=== PATIENT | male | born 1985 | race Two or more races ===

== ENCOUNTER 2016-11-28 09:46 | Emergency (ER) | payer SELFPAY ==
--- NOTE | ~2016-11-28 | ER ---
PATIENT'S NAME: VIVIAN DAVID [facility] AGE: 31 Y [address] ROOM: [place] [address] LOCATION: GMED ADMIT DATE: 11/28/2016 ER/Outpatient Report DISCHARGE DATE: 11/28/2016 FAMILY PHYSICIAN: Mina Goodman MD ATTENDING PHYSICIAN: Ricky Giles CHIEF COMPLAINT: The patient came in for abnormal lab results. HISTORY OF PRESENT ILLNESS: The patient states that [facility]. Labs were obtained and he was sent home. They called him with an elevated sugar and creatinine levels and recommended he come immediately to the ER for evaluation. The patient states he is otherwise feeling fine with no particular complaints. He states that he has had a few surgeries recently and they "really adjusted his insulins." He denies any other issues, but states his sugars normally run between 200 and 400 on his typical checks. He is otherwise feeling okay and does not notice any change in intake or others. PAST MEDICAL HISTORY: Documented on the record and reviewed by me. SOCIAL HISTORY: Documented on the record and reviewed by me. MEDICATIONS: Documented on the record and reviewed by me. ALLERGIES: DOCUMENTED ON THE RECORD AND REVIEWED BY ME. REVIEW OF SYSTEMS: All systems reviewed and negative except as noted in the HPI. PHYSICAL EXAMINATION: VITAL SIGNS: Blood pressure 125/63, pulse 109, respiratory rate 16, temperature 97.7, and SpO2 is 98% on room air. GENERAL: An age-appropriate male, in no obvious pain or distress, resting comfortably on the exam table. NEUROLOGIC: Awake and alert. GCS is 15. No focal deficits. No asymmetry. No gait abnormalities. HEENT: Normocephalic, atraumatic. Eyes are PERRL. Oropharynx is clear. NECK: Supple. Trachea is midline. CHEST: Heart has regular rate and rhythm with borderline tachycardia. Lungs are clear to auscultation bilaterally with no rhonchi, wheezes, or rales. PATIENT'S NAME: VIVIAN DAVID [facility] AGE: 31 Y [address] ROOM: [place] [address] LOCATION: ED ADMIT DATE: 11/28/2016 ER/Outpatient Report DISCHARGE DATE: 11/28/2016 FAMILY PHYSICIAN: Mina Goodman MD ATTENDING PHYSICIAN: Ricky Giles ABDOMEN: Soft, nontender, nondistended. No rebound or guarding. BACK: Nontender to palpation throughout. No CVA tenderness. EXTREMITIES: Warm and well perfused with no obvious abnormalities. SKIN: Warm, dry, and intact without diaphoresis or rashes. LABORATORY DATA AND X-RAYS: No imaging was obtained. Labs: Urinalysis consistent with glucosuria, unlikely to be infected. Hemoglobin A1c is 15.6, mean glucose is 401. Procalcitonin is 0.1. CMS is notable for potassium of 3.3, creatinine of 1.8, GFR of 44, elevated alkaline phosphatase of 142. CRP is below threshold. TSH is 1.17, free T4 is 1.1. Serum ketones are negative. CBC is notable for a WBC of 12.0, otherwise grossly unremarkable; mild anemia with hemoglobin of 11.5. INR 0.9. Venous pH 7.4. IMPRESSION: 1. Likely chronic renal failure secondary to diabetes. 2. Poorly controlled diabetes. EMERGENCY DEPARTMENT COURSE: The patient is seen and evaluated as above. Labs appear to be consistent with his previously obtained labs, no significant changes. The patient is well hydrated. He states that he has known problems with his kidneys. When compared to prior labs, his creatinine went from 1.5 to 1.8. It is stable from his labs from the [facility] yesterday. I discussed the case with Dr. Goodman, primary care physician, and he will be evaluated this week in clinic. I recommended strongly that the patient be evaluated and get his sugars under control before leaving the country to go to [place] as per his plan. I do not think that the patient has DKA or other significant complication. I am recommending close followup with Dr. Goodman this week to help with these issues. All questions were answered, and the patient was discharged. MD BRISEIDA BETTENCOURT/denital /[id number] d: 11/29/16 0710 t: 11/29/16 0945, OUTPATIENT REPORT
[2016-11-28 10:22] LABS: BILIRUBIN URINE NEGATIVE (NEGATIVE); BLOOD URINE 25 /UL (NEGATIVE); COLOR URINE YELLOW (YELLOW); GLUCOSE URINE 1000 mg/dL (NEGATIVE); KETONE URINE 5 mg/dL (NEGATIVE); LEUKOCYTES URINE NEGATIVE /UL (NEGATIVE); NITRITE URINE NEGATIVE (NEGATIVE); PH URINE 6.5 (4.0-8.0); PROTEIN URINE 500 mg/dL (NEGATIVE); TURBIDITY URINE CLEAR (CLEAR); UROBILINOGEN URINE NORMAL (NORMAL)
[2016-11-28 10:37] LABS: BACTERIA URINE FEW (NEGATIVE); MUCUS URINE 1+ (NEGATIVE)
[2016-11-28 11:09] LABS: BICARBONATE 29.7 mmol/L (18.0-23.0); LACTATE 1.5 mEq/L (0.50-1.60); PCO2 48 mmHg (35-45); PO2 55 mmHg (80-90)
[2016-11-28 11:11] LABS: BASOPHIL # 0.1 K/uL (0.0-0.2); BASOPHIL % 0.8 %; EOSINOPHIL # 1.3 K/uL (0.0-0.5); EOSINOPHIL % 10.4 %; HEMATOCRIT 34.1 % (37.0-53.0); HEMOGLOBIN 11.5 g/dL (12.0-17.0); IMMATURE GRANULOCYTE # 0.1 K/uL (0.0-0.3); IMMATURE GRANULOCYTE % 0.4 %; LYMPHOCYTE # 2.3 K/uL (0.8-4.0); LYMPHOCYTE % 19.3 %; MCH 27.5 pg (27.0-34.0); MCHC 33.7 gm/dL (32.0-36.5); MCV 81.6 fl (83.0-98.0); MONOCYTE # 0.4 K/uL (0.0-1.0); MONOCYTE % 3.6 %; MPV 10.1 fl (9.4-12.4); NEUTROPHIL # (ANC) 7.9 K/uL (1.4-9.0); NEUTROPHIL % 65.5 %; NRBC % 0 /100WBC (0-0.00); PLATELET COUNT 438 K/uL (150-450); RBC 4.18 M/uL (4.00-6.00); RDW-CV 13.2 % (11.9-14.6)
[2016-11-28 11:20] LABS: INR - (THERAPEUTIC) 0.9 (0.9-1.1); PROTIME 9.5 SECONDS (9.6-11.1); PTT 29 SECONDS (25-32)
[2016-11-28 11:33] LABS: ALK PHOS 142 IU/L (33-138); ALT 20 IU/L (12-78); ANION GAP 16.3 (10.0-19.0); AST 16 IU/L (10-40); BLOOD UREA NITROGEN 23 mg/dL (6-24); CALCIUM 8.5 mg/dL (8.5-10.5); CHLORIDE 98 mMol/L (96-110); CO2 25 mMol/L (22-32); CREATININE 1.8 mg/dL (0.6-1.3); ESTIMATED GFR (MDRD EQUATION) 44; POTASSIUM 3.3 mMol/L (3.7-5.1); SODIUM 136 mMol/L (135-145); TOTAL BILIRUBIN 0.3 mg/dL (0.0-1.5); TOTAL PROTEIN 6.9 g/dL (6.0-8.4)
[2016-11-28 11:34] LABS: ALBUMIN 1.9 gm/dL (3.5-5.0)
[2017-05-07] MEDS ORDERED: LISINOPRIL-HCT1 EAC1 PO (15:24)
[2017-05-07] MEDS ORDERED: TYLENOL EXTRA500 MG PO (15:27)
== END 2016-11-28 12:33 | disposition disaster alternative care site (69) ==
LOC: GMED 09:46
PROVIDERS: Emergency Medicine
DX: E11.65 Type 2 diabetes mellitus with hyperglycemia (principal)
CPT/HCPCS: J7030

== ENCOUNTER 2017-01-22 07:36 | Inpatient (IN) | payer SELFPAY ==
[~2017-01-22] VITALS: Ht 172.7 cm; Wt 91.7 kg
--- NOTE | ~2017-01-22 | ER ---
[facility] 31 Y [address] ROOM: [place] [address] LOCATION: GPCU ADMIT DATE: 01/22/2017 ER/Outpatient Report DISCHARGE DATE: FAMILY PHYSICIAN: PHYSICIAN, NO ATTENDING PHYSICIAN: Richie CAVANAUGH Time of arrival: 0736 hours. Time of evaluation: 0736 hours. CHIEF COMPLAINT: Right foot wound. HISTORY OF PRESENT ILLNESS: The patient is a 31-year-old male who presents to the emergency department today with a chief complaint of right foot wound. He reports this started about a week and a half prior to arrival. He reports 6/10 pain, it is sharp, it is worse with movement. 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 It goes to his great toe. He has been using some unknown ointment from [place] for the past week and a half. He reports his blood sugars have been running in the 400-500 over the past couple days. He does have a history of a left toe amputation previously due to an infected ulcer. He is an insulin-dependent diabetic. PAST MEDICAL HISTORY: Insulin-dependent diabetes, hypertension, dyslipidemia. PAST SURGICAL HISTORY: Appendectomy, heart surgeries unclear as to what, left 5th toe amputation. SOCIAL HISTORY: The patient denies any tobacco use. Reports occasional alcohol use. Denies any illicit drug use. ALLERGIES: NO KNOWN DRUG ALLERGIES. MEDICATIONS: Please see list. PRIMARY CARE DOCTOR: None. REVIEW OF SYSTEMS: All systems are reviewed by myself and negative with the exception of those PAT[facility] 31 Y [address] ROOM: [place] [address] LOCATION: GPCU ADMIT DATE: 01/22/2017 ER/Outpatient Report DISCHARGE DATE: FAMILY PHYSICIAN: PHYSICIAN, NO ATTENDING PHYSICIAN: Richie CAVANAUGH discussed in HPI and past medical history. PHYSICAL EXAMINATION: VITAL SIGNS: Weight 85.1 kg, blood pressure 190/85, pulse 117, respiratory rate 18, temperature 98.8, oxygen saturation 97% on room air. GENERAL: The patient is a 31-year-old male, who appears older than stated age. HEENT: Normocephalic, atraumatic. Pupils are equal, round, and reactive to light. Mucous membranes are dry. NECK: Supple. There is no nuchal rigidity. CARDIOVASCULAR: Tachycardic. No murmurs, rubs, or gallops. LUNGS: Clear to auscultation bilaterally. No wheezes, rales, or rhonchi. ABDOMEN: Soft, nontender, and nondistended. No rebound, rigidity, or guarding. MUSCULOSKELETAL: The patient moves all 4 extremities. Ambulates with an antalgic gait. SKIN: The patient has an open, malodorous wound to the sole of the right foot, primarily at the base of the right toe into the right great toe. There is drainage noted. There is bloody area noted. LABORATORY DATA AND IMAGING STUDIES: Labs and x-rays are obtained. A venous blood gas, 7.42/40/44/26/1.3. Lactate is 2.0. CRP is 15.2. CBC is unremarkable except for white blood cell count of 13.8, hemoglobin 11.9, hematocrit 35.7, platelets 477. Acetone is positive 1-4. CMP remarkable for sodium 133, potassium 3.0, creatinine is 1.8, glucose 508. LFTs are normal. IMPRESSION: 1. Acute right diabetic foot ulcer with cellulitis. 2. Sepsis due to number 1. 3. Uncontrolled diabetes mellitus type 2. 4. Hypokalemia. 5. Acute kidney injury. 6. Initial visit. EMERGENCY DEPARTMENT COURSE: The patient was brought back to the examination room. Seen and evaluated by myself. IV is established. Laboratory analysis and imaging are obtained as described above. Blood cultures are pending. Wound cultures are obtained and are pending. The patient is given a liter of normal saline bolus. He is given 4 mg Zofran IV. He is initiated on vancomycin 1500 mg as well as Zosyn 4.5 g IV. Potassium replacement is initiated. The patient is given 60 mEq of KCl orally as well as 40 mEq KCl IV over 4 hours. The patient is given another liter of normal saline. I have discussed the case with the Hospitalist Service, Dr. Cavanaugh. He has seen and evaluated the patient down PATIENT'S NAME: VIVIAN DAVID [facility] AGE: 31 Y [address] ROOM: [address] [address] [facility] ADMIT DATE: 01/22/2017 ER/Outpatient Report DISCHARGE DATE: FAMILY PHYSICIAN: LINDA CULVER ATTENDING PHYSICIAN: Richie CAVANAUGH here in the emergency department. He does agree to accept the patient for further evaluation, treatment, and management including IV antibiotics. DISPOSITION: The patient is admitted under the care of the Hospitalist Service in stable condition. DO MARU UREÑA/denital /[id number] d: 01/22/17 1513 t: 01/23/17 0856, OUTPATIENT REPORT
--- NOTE | ~2017-01-22 | CON ---
[facility] AGE: 31 Y [address] ROOM: [place] [address] LOCATION: GPCU ADMIT DATE: 01/22/2017 Consultation DISCHARGE DATE: FAMILY PHYSICIAN: PHYSICIAN, NO ATTENDING PHYSICIAN: Richie TORREZ DATE OF CONSULTATION: 01/23/2017 REFERRING PHYSICIAN: Luis Alberto Miller MD HISTORY OF PRESENT ILLNESS: Mr. Thao is a 31-year-old type 2 diabetic. Reports a work injury three weeks ago, was working for a [employer] company in [place]. Cut his right foot at work. After the injury, he was fired. Since that time, he has been having increasing pain and swelling every day. Admitted to the hospital yesterday. He has shaking chills and sweats. Denies pain elsewhere. ALLERGIES: NONE KNOWN. MEDICATIONS: He is on: 1. Insulin. 2. Levemir. 3. Tradjenta. 4. Lovastatin. 5. Lisinopril. ALLERGIES: NO ALLERGIES KNOWN. PAST MEDICAL HISTORY: Diabetic, hypertension, previous amputation of a portion of his left foot. REVIEW OF SYSTEMS: As above. FAMILY MEDICAL HISTORY: Noncontributory. PERSONAL AND SOCIAL HISTORY: He is single. Lives in [place]. Currently unemployed. He has not completed high school. Does not smoke. Does not chew. Occasional alcohol. No IV drug abuse. PATIENT'S NAME: VIVIAN THAO [facility] AGE: 31 Y [address] ROOM: [place] [address] LOCATION: GPCU ADMIT DATE: 01/22/2017 Consultation DISCHARGE DATE: FAMILY PHYSICIAN: PHYSICIAN, NO ATTENDING PHYSICIAN: Richie TORREZ PHYSICAL EXAMINATION: GENERAL: male, mild distress. Shaking chills. HEENT: Hears and sees. Airway clear. NECK: Nontender, BACK: Nontender. HEART: Pulse rate is regular. LUNGS: Able to take a deep breath. ABDOMEN: Soft. EXTREMITIES: In the right foot, there is edema, perhaps some fluctuance. On the plantar surface of the foot, there is a full-thickness ulceration covering the plantar surface of the metatarsal heads to the mid metatarsals from the second through fifth. There is also full-thickness ulceration of the great toe, surrounding erythema. No purulence expressed. VASCULAR: Cannot palpate dorsalis pedis or posterior tibial pulses, but are dopplerable. DIAGNOSTIC STUDIES: X-rays were reviewed. Right foot, no fracture or dislocation. No obvious bone destruction. There were some unusual calcified densities on the plantar surface of the foot which could be foreign bodies. ASSESSMENT AND PLAN: Most likely septic. Will benefit from at least open debridement of the foot, possibly partial amputation. We will better evaluate with an ankle-brachial index and an MRI with contrast. We will make n.p.o. and plan surgery in the morning. LUIS ALBERTO MILLER MD DPM/denital /[id number] d: 01/24/17 0156 t: 01/27/17 2152, CONSULTATION REPORT
--- NOTE | ~2017-01-22 | OR ---
[facility] 31 Y [address] ROOM: [place] [address] LOCATION: GPCU ADMIT DATE: 01/22/2017 OR/Procedure Report DISCHARGE DATE: FAMILY PHYSICIAN: PHYSICIAN, NO ATTENDING PHYSICIAN: Richie TORREZ SURGEON: Luis Alberto Miller MD STRAIGHT CUTTER: DATE OF PROCEDURE: 01/24/2017 DIAGNOSES: 1. Open wounds, infection and necrosis, right foot. 2. Diabetes. PROCEDURE: 1. Debridement, open wounds, right foot. 2. Cultures. 3. Application of a wound VAC. ANESTHESIA: General. INDICATION: Mr. Thao infected right diabetic foot with open wounds. Reports history of 3 weeks ago an injury at work with an open wound of the right foot, became more swollen, red, and painful each day, now septic for debridement. MRI does not show any bone involvement. Has noncompressible vasculature of diabetes. Understands high risk for amputations in the future. DESCRIPTION OF PROCEDURE: Mr. Thao was taken to the operating room. He is on Zosyn and vancomycin. General anesthetic administered via endotracheal tube. Right leg prepared with Betadine scrubbing followed by Betadine painting and draped sterilely. The great toe necrotic tissue on the plantar surface and the medial surface, 4 cm x 2.5 cm elliptical excision of necrotic tissue into the subcutaneous tissue, necrotic subcutaneous tissue was excised as well, not down to the bone. Over the mid and distal metatarsals, spanning from the 2nd to the 5th, there was an area of necrotic tissue and was elliptically excised, spanning 8 cm x 5 cm into the subcutaneous tissues, not down to the bone. Minimal actual true purulence, just necrotic tissue. All viable tissue at the end of the procedure was irrigated with 9 L with the pulse lavage. Cultures were taken deep in the wounds. Wound VAC was placed. Procedure was done without complication. Estimated blood loss from the procedure was minimal. To the recovery room in stable condition. LUIS ALBERTO MILLER MD PATIENT'S NAME: VIVIAN THAO [facility] AGE: 31 Y [address] ROOM: [place] [address] LOCATION: [facility] ADMIT DATE: 01/22/2017 OR/Procedure Report DISCHARGE DATE: FAMILY PHYSICIAN: LINDA CULVER ATTENDING PHYSICIAN: Richie TORREZ DPM/chris /[id number] d: 01/25/17 0837 t: 01/27/17 2149, OPERATIVE SUMMARY
--- NOTE | ~2017-01-22 | DS ---
PATIENT'S NAME: VIVIAN DAVID [facility] AGE: 31 Y [address] ROOM: [address] [place] [address] LOCATION: GPCU ADMIT DATE: 01/22/2017 Discharge Summary DISCHARGE DATE: 01/31/2017 FAMILY PHYSICIAN: PHYSICIAN, NO ATTENDING PHYSICIAN: Afshan Quiroz PRIMARY DIAGNOSES: 1. Sepsis. 2. Right diabetic foot cellulitis. 3. Diabetic nephropathy. 4. Severe proteinuria. 5. Acute anemia. 6. Diabetes, that is poorly controlled. 7. Essential hypertension. 8. Hypoalbuminemia. PRINCIPAL PROCEDURE: Done for the patient includes: 1. Left renal biopsy by Dr. Ch. 2. Right diabetic foot wound debridement by Dr. Bro. LABORATORY DATA: On admission, WBC was 12.0, highest level obtained was 17.1, prior to discharge was 10.4; H and H on admission were 11.9 and 35.7, prior to discharge were 6.5 and 20.6; platelet was 477,000 on admission, prior to discharge was 471,000. Creatinine on admission was 1.8, lowest level obtained was 1.5, prior to discharge was 1.9; sodium on admission was 130, prior to discharge was 141; potassium on admission was 3.0, lowest level obtained was 2.8 and prior to discharge was 3.4, however,was repleted; bicarb was 23, prior to discharge 25; BUN was 16, prior to discharge was 13. Hemoglobin A1c is 15.6. ESR is greater than 120. Total cholesterol was 292, triglycerides 632, HDL 36. Vancomycin 19.2. UA: Leukocytes negative, specific gravity 1.020, pH 6.0, proteinuria 500, wbc 2-5. Urine spot protein 17.5, urine spot creatinine 32, urine sodium 118, 24-hour urine creatinine 1372, 24-hour urine protein 18,334, urine protein volume 3920. Serum iron 11, TIBC 56, transferrin saturation 19. CRP 15.2 on admission, prior to discharge was 12.3. C3 and C4 level, C3 of 128 and C4 of 37. Ionized calcium 4.41. Microalbuminuria 4419. Serum protein electrophoresis, hypoalbuminemia. MICROBIOLOGY DATA: Wound swab culture positive for Staphylococcus aureus heavy growth and Enterococcus faecalis moderate growth. Wound swab in the OR also positive for the same. HIV-1 and 2 negative. Antinuclear antibody negative. Stool for heme test negative. Stool for C. diff negative. Blood culture, no growth after 5 days. RADIOLOGY DATA: X-ray of the foot: No evidence of osteomyelitis, soft tissue calcifications at plantar surface of the forefoot and ASVD advanced for age. PATIENT'S NAME: VIVIAN DAVID [facility] AGE: 31 Y [address] ROOM: [id number] [place] [id number] LOCATION: GPCU ADMIT DATE: 01/22/2017 Discharge Summary DISCHARGE DATE: 01/31/2017 FAMILY PHYSICIAN: PHYSICIAN, NO ATTENDING PHYSICIAN: Afshan Quiroz Chest x-ray: Normal two-view chest. MRI of the right lower extremity, diffuse soft tissue edema consistent with cellulitis. No abscesses, no MRI findings of osteomyelitis. CT-guided renal biopsy, CT of the abdomen and pelvis without contrast, anomalous renal configuration, no renal collecting system obstruction identified with no perinephric hematoma identified. Left pleural effusion with adjacent lung consolidation at the left base. No free air with no findings of bowel obstruction. Duplex upper extremity vein procedure, negative right upper extremity venous Doppler, and vascular study of right lower extremity findings, ankle-brachial indices are 1.7 bilaterally for JOHNNIE. This appears to be spuriously elevated in a diabetic patient almost certainly due to peripheral vascular calcification. HOSPITAL COURSE: For history of present illness, please take a look at the H and P, which was done by Dr. Cavanaugh. The patient was admitted for diabetes with hyperglycemia and also sepsis from right diabetic foot ulcer. He was started on broad-spectrum antibiotics of vancomycin and Zosyn. His sugars were improved with the insulin regimen, which the patient was put on. With progression in his hospital stay, it was observed that the patient had a prior history of severe proteinuria, and his serum albumin during this admission was also significantly low. Based on this, he did get a renal consult, and Renal did renal panel workup to rule out autoimmune as well as to rule out nephrotic syndrome as the patient had mild features both physically and also on chemistry. By the next day, he did also get an orthopedic consult for his right lower extremity diabetic foot. An JOHNNIE was done, which was abnormal, and this was followed with an MRI of his right lower extremity, which was negative for osteomyelitis. The patient was subsequently taken into the OR for a debridement of his right lower extremity. Please check the operative note for details. By the second day of his hospital stay, his initial wound swab culture, which was obtained on admission was positive for Staphylococcus aureus as well as enterococcus, and his antibiotics were deescalated to Zosyn. Also his OR cultures, which were taken were also positive for same. During the hospital stay, the patient was put on almost half of his total home dose of insulin. He was put on Levemir 10 units b.i.d., which helped to stabilize and keep his blood sugar under control as against his total of 45 units of insulin, which he was taking at home, which did not help in the control of his diabetes. The patient did have an extensive counseling on the importance and the need for him to be compliant with both his diet as his insulin use. However, the patient did not express any sign of willing to change or any acceptance that he has not been taking care of himself. He did also get a renal biopsy, which ultimately came out to consistent with diabetic nephropathy. During his hospital stay, his hemoglobin was trickling down. His stool was negative for any occult blood. The patient was offered transfusion, which would help to raise his hemoglobin some; however, he declined given the risk of probably infection, which the patient was told is minimal; however, he still refused blood transfusion. He was also explained PATIENT'S NAME: VIVIAN DAVID [facility] AGE: 31 Y [address] ROOM: [place] [address] LOCATION: GPCU ADMIT DATE: 01/22/2017 Discharge Summary DISCHARGE DATE: 01/31/2017 FAMILY PHYSICIAN: , LINDA ATTENDING PHYSICIAN: Afshan Quiroz to the complications of not receiving blood transfusion, which included a poor wound healing and fatigue and then ultimately more stress on his heart. However, he was started on Epogen. Given his severe hypoalbuminemia, the patient was also instructed that he is also at risk of developing PEs and DVTs, and we recommended for the patient to be on a prophylactic dose of Coumadin as a form of long-term anticoagulation to prevent him from having DVT or PE; however, the patient declined. He was also visited by the diabetic educators as well. The patient also did get an ID consult a day prior to discharge, who recommended for him to continue on Augmentin for a total of 7 days. Following his debridement, the patient did have a wound VAC in place, however, given his financial situation, it was not possible for the patient to be discharged home on wound VAC. However, Dr. Bro did say if the patient was unable to get a wound VAC item secondary to his financial situation that it was okay for him to be discharged with wet-to-dry dressing of his wound, which was what was finally settled for. On the day of discharge, vital signs were stable, and the patient was discharged home after again extensive counseling was given to him as regarding taking better care of himself, to be more compliant with an appropriate diet, and also the risk that probably in the next one year that he may end up on dialysis. DISCHARGE INSTRUCTIONS: The patient is to follow with Dr. Bro on February 11, 2017, and also he is to follow with Dr. Lopes, new PCP, and also with Dr. Finley. MEDICATIONS ON DISCHARGE: 1. Norvasc 10 mg p.o. daily, new medication. 2. Augmentin 500 mg p.o. twice daily for a total of 6 days. 3. Vasotec 10 mg p.o. daily. 4. Levemir 10 units subcu twice daily FlexPen. 5. Protonix 40 mg p.o. daily. 6. Crestor 10 mg p.o. daily, new medication. 7. Tylenol 2 g p.o. q.12 hours p.r.n. 8. Humalog FlexPen insulin to carb ratio of 1 unit for every 15 g. 9. Hydrochlorothiazide 12.5 mg daily. Discharge time spent on this patient is approximately 35 minutes. MD JACK COLMENARES/chris /[id number] d: 02/01/17 0108 t: 02/03/17 1413, DISCHARGE SUMMARY
--- NOTE | ~2017-01-22 | CON ---
PATIENT'S NAME: VIVIAN DAVID [facility] AGE: 31 Y [address] ROOM: [place] [address] LOCATION: GPCU ADMIT DATE: 01/22/2017 Consultation DISCHARGE DATE: FAMILY PHYSICIAN: PHYSICIAN, NO ATTENDING PHYSICIAN: Richie TORREZ DATE OF CONSULTATION: 01/30/2017 REFERRING PHYSICIAN: Luis Alberto Bro MD CONSULTATION REQUESTED BY: Afshan Quiroz MD. REASON FOR CONSULTATION: Right diabetic foot infection. SUBJECTIVE: Vivian is a 31-year-old male, whom I was asked see today in consultation for treatment recommendations regarding a right diabetic foot infection. He was admitted on 01/22/2017 with a complaint of right foot ulcer for the last several weeks that had grown in size. He has a history of type 2 diabetes. Ultimately, he went on to debridement on 01/24/2017, with a fairly large area of necrotic tissue being debrided. Minimal purulence was noted. Cultures have grown methicillin susceptible Staphylococcus aureus and Enterococcus faecalis. Blood cultures have been negative. An MRI which was performed showed no evidence of osteomyelitis or a significant abscess. PAST MEDICAL HISTORY: As above, also history of congenital heart disease with prior heart surgery, hypertension, diabetic neuropathy, and nephrotic syndrome. ALLERGIES: NONE NOTED. CURRENT MEDICATIONS: See the MAR for complete listing. He is currently on Zosyn for antibiotics. FAMILY HISTORY: Unremarkable without any significant health issues. SOCIAL HISTORY: No tobacco or alcohol abuse history. 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 REVIEW OF SYSTEMS: A complete review of systems was carried out and was remarkable only as noted. Please refer to the admission history and physical for details. PATIENT'S NAME: VIVIAN DAVID [facility] AGE: 31 Y [address] ROOM: [address] [address] LOCATION: GPCU ADMIT DATE: 01/22/2017 Consultation DISCHARGE DATE: FAMILY PHYSICIAN: PHYSICIAN, NO ATTENDING PHYSICIAN: Richie TORREZ OBJECTIVE: GENERAL: He appeared pleasant and comfortable and was in no distress. VITAL SIGNS: Temperature is 36.6, blood pressure 119/78, pulse 93. HEENT: Posterior pharynx clear, no adenopathy or thyromegaly. Cranial nerves intact. NECK: Supple. CHEST: Clear to auscultation. CARDIOVASCULAR: Regular rate and rhythm without S3, S4, murmur. ABDOMEN: Soft, nontender without hepatosplenomegaly or masses. EXTREMITIES: The right foot was dressed and wrapped. VAC dressing was in place on the foot. There were significant ecchymoses noted on the toes. LABORATORY DATA: Creatinine 1.9, liver function tests normal. Hemoglobin A1c is 15.6. White count is 10.4. Microbiology: Blood culture x1, 01/25/2017 shows no growth to date. Blood cultures x2, 01/22/2017 show no growth to date. Foot cultures 01/22/2017 and 01/24/2017 show Enterococcus faecalis and Staphylococcus aureus. IMPRESSION: Right foot diabetic and soft tissue infection with Staphylococcus aureus and Enterococcus faecalis. This has been debrided, and the wound reportedly looks good with dressing changes. He is planning to discharge in the next few days. As he apparently has a reasonable looking wound without ongoing signs of infection, he had negative blood cultures, and his MRI did not show significant bone or deep tissue involvement, I think it would be reasonable to casino change attendant to oral antibiotics for the next 1-2 weeks. We will casino change attendant to Augmentin 500 mg twice daily for at least the next week, and this can be extended as needed. He will follow up with Dr. Bro and his other providers, but he can follow up with infectious diseases as needed. Thank you this consultation. I am available to discuss the case by phone at [phone]. MD KETURAH MITCHELL/denital /[id number] PATIENT'S NAME: VIVIAN DAVID [facility] AGE: 31 Y [address] ROOM: [address] [place], [place] [address] [facility] ADMIT DATE: 01/22/2017 Consultation DISCHARGE DATE: FAMILY PHYSICIAN: PHYSICIAN, NO ATTENDING PHYSICIAN: Richie TORREZ CC: Afshan Quiroz MD d: 01/30/17 1710 t: 01/31/17811, CONSULTATION REPORT
--- NOTE | ~2017-01-22 | HP ---
PATIENT'S NAME: VIVIAN DAVID [facility] AGE: 31 Y [address] ROOM: [place] [address] [facility] ADMIT DATE: 01/22/2017 History & Physical DISCHARGE DATE: FAMILY PHYSICIAN: PHYSICIAN, NO ATTENDING PHYSICIAN: Richie TORREZ DATE OF SERVICE: CHIEF COMPLAINT: Foot pain. HISTORY OF PRESENT ILLNESS: The patient is a 31-year-old gentleman with history of diabetes mellitus type 2 and hypertension, who presents here with right foot ulcer. The patient reports that for the past 2 weeks, he has been having right foot pain. 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 However, as the time has progressed, his ulcer has increased significantly with worsening of pain, worsening of ulceration in size and depth, and surrounding erythema change. He reports that he used gauze and topical medication to control it, however, it did not improve. Today, he came to our emergency department as he is in-between PCP. The patient also reports of nasal congestion and productive cough with clear sputum. He reports that most of his family members have some sort of viral illness and thinks that he got it from his family member. The patient denies fever, chills, abdominal pain, nausea, or vomiting. No chest pain or diarrhea. PAST MEDICAL HISTORY: 1. Congenital heart disease. Does not remember what kind it is. He has had surgery in [place]. 2. Diabetes mellitus, type 2. 3. Hypertension. 4. Diabetic neuropathy. PAST SURGICAL HISTORY: 1. Has had 5th left toe amputation. 2. Appendectomy. 3. Multiple I and D's. 4. Congenital heart disease with surgery. FAMILY HISTORY: The patient reports that his mother and father are healthy and also his [facility] AGE: 31 Y [address] ROOM: [place] [address] LOCATION: GPCU ADMIT DATE: 01/22/2017 History & Physical DISCHARGE DATE: FAMILY PHYSICIAN: PHYSICIAN, NO ATTENDING PHYSICIAN: Richie TORREZ siblings. Does not remember his grandparents. SOCIAL HISTORY: The patient denies smoking and reports that he rarely drinks. 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 MEDICATIONS: 1. Levemir 45 units in the morning. 2. Humalog sliding scale. 3. Tradjenta. 4. Lovastatin. 5. Lisinopril. REVIEW OF SYSTEMS: All systems have been reviewed and are negative except for what I mentioned in the HPI. PHYSICAL EXAMINATION: VITAL SIGNS: Temperature 98.8, blood pressure 190/85, heart rate 117, respiratory rate 18, and oxygen saturation 97% on room air. GENERAL APPEARANCE: The patient is alert and awake, lying on bed in no acute distress. HEENT: Head; normocephalic and atraumatic. Eyes; extraocular muscles intact. Sclerae nonicteric. Oral cavity; dry oral mucosa. Ears; no ear discharge. Nose; nasal congestion. CHEST: Clear to auscultation bilaterally. No rhonchi, wheezes, or rales. HEART: Regular rate and rhythm. No murmurs, rubs, or gallops. ABDOMEN: Soft, nontender, and nondistended. Bowel sounds present. HEART: Tachycardic. No murmurs, rubs, or gallops. SKIN: Right foot sole shows ulceration with necrotic change and eschar length from 2nd toe up to 5th toe with length of close to 5 cm. No drainage expressed. Erythema around lesion. Also the great toe ulceration without purulent discharge. EXTREMITIES: Bilateral dorsalis pedis and posterior tibialis pulses present and intact. MUSCULOSKELETAL: Range of motion intact. No obvious joint effusion appreciated. EQUIP TECH: Alert and oriented. Motor and sensory grossly intact. LABORATORY DATA: Lactate of 2. Potassium of 3.0, sodium of 133, creatinine of 1.8, and blood glucose of 508. White blood cell count of 13.8, hemoglobin 11.9, platelets of 447,000, and ESR greater than 120. VBG shows pH of 7.42, pCO2 of 40, and bicarbonate of 25. PATIENT'S NAME: VIVIAN DAVID [facility] AGE: 31 Y [address] ROOM: [id number] [place] [id number] [facility]: [facility] ADMIT DATE: 01/22/2017 History & Physical DISCHARGE DATE: FAMILY PHYSICIAN: PHYSICIAN, NO ATTENDING PHYSICIAN: Richie TORREZ ASSESSMENT AND PLAN: 1. Diabetic foot ulcer with cellulitis, etiology most likely secondary to uncontrolled diabetes and poor foot care. Also with underlying diabetic neuropathy. Pulses are present. The patient already given vancomycin and Zosyn in the emergency department. Blood cultures have been withdrawn. Wound culture also been drawn. I suspect the patient might have underlying osteomyelitis. Since the patient has a creatinine of 1.8, and a possible chronic kidney disease or acute kidney injury, we will hydrate the patient adequately and acquire renal function panel by tomorrow. If renal function panel shows improvement, we will acquire an MRI with and without contrast to further investigate osteomyelitis. If osteomyelitis diagnosed, we will consult Orthopedics for possible surgical evaluation. 2. Diabetes mellitus, type 2, uncontrolled. The patient reports that he sometimes misses his insulin regimen. Currently presented with blood glucose of 508. We will hold any IV insulin regimen as his potassium is currently 3.0. We will start his home medication of 45 detemir and start sliding scale. We will follow blood glucose closely. ABG does not show any signs of diabetic ketoacidosis. The patient has already received 2 L of IV fluids in the emergency department. We will continue IV fluid treatment and follow blood glucose closely. Discussion was made about medical compliance. 3. Acute kidney injury. It is likely secondary to dehydration and sepsis. The patient in the past has had some elevation of creatinine. We will acquire protein to creatinine ratio to further discuss proteinuria. We will hydrate the patient and assess for kidney function with renal function panel daily. 4. Hypokalemia. The patient presented with a potassium of 3.0. He is receiving 60 mEq of p.o. potassium in the emergency department and also is currently getting 40 mEq IV. We will repeat CMS at 1800 hours. 5. Productive cough. Etiology most likely to postnasal drip secondary to viral illness and nasal congestion. However, we will acquire chest x-ray to further investigate any infiltrate. We will follow the patient clinically. 6. Hypertension. We will hold lisinopril as the patient has elevated creatinine. We will switch to amlodipine 10 mg daily. To restart amlodipine, when creatinine is back to normal base. I have personally reviewed the patient's medical record including but not limited to, blood work and radiology report. Total time spent with the patient is greater than 60 minutes with more than 50% of the time is spent in direct inpatient care and patient consultation. Case was reviewed with the patient and nursing staff. All questions were answered to patient's satisfaction. We will admit the patient as an inpatient for diabetic foot ulcer with cellulitis with possible osteomyelitis. PATIENT'S NAME: VIVIAN DAVID [facility] AGE: 31 Y [address] ROOM: [place] [address] LOCATION: [facility] ADMIT DATE: 01/22/2017 History & Physical DISCHARGE DATE: FAMILY PHYSICIAN: PHYSICIAN, LINDA ATTENDING PHYSICIAN: Richie TORREZ MD ARNAUD RAY/chris /[id number] D: [id number] T: [id number] HISTORY & PHYSICAL
--- NOTE | ~2017-01-22 | ENPV ---
Vascular Upper Extremities Veins Procedure Demographics Patient Name VIVIAN DAVID Date of Study 01/25/2017 Patient Number [id number] Gender Male Date of 1985 Age 31 Visit Number [id number] Height Accession Number [id number] Weight Room Number G6329 BSA BMI Referring Interpreting Dima Dahl MD Physician Physician Physician Ordering Taproom Attendant Physician Welt Rougher Karen Zamorano, RT,RVT,RDCS Conclusions Summary TECHNIQUE: The deep and superficial veins of the upper extremity on the right were evaluated with alcala scale utilizing compression and augmentation, and evaluation of phasic flow using spectral Doppler and color flow FINGDINGS: Deep and superficial veins of the right upper extremity show normal color flow and compressibility without thrombosis. IMPRESSION: NEGATIVE RIGHT UPPER EXTREMITY VENOUS DOPPLER STUDY. Procedure Type of Study: Veins:Upper Extremities Veins, Upper Extremity Right. Indications for Study:Unilateral pain and edema. Appropriate Use Criteria:9 Patient Status:Routine. Study Location:Inpatient Portable. Technical Quality:Good visualization. - Preliminary reported to:ASA, RN. Velocities are measured in cm/s ; Diameters are measured in cm Right UE Vein Measurements 2D and Doppler Measurements + + + + +--------+ + !Location !Visualized !Compressibility !Thrombosis !Signal !Reflux ! + + + + +--------+ + !IJV !Yes ! !None ! ! ! + + + + +--------+ + !SCV !Yes ! !None ! ! ! + + + + +--------+ + !Axillary !Yes ! !None ! ! ! + + + + +--------+ + !Brachial !Yes ! !None ! ! ! + + + + +--------+ + !Radial !Yes ! !None ! ! ! + + + + +--------+ + !Ulnar !Yes ! !None ! ! ! + + + + +--------+ + !Basilic !Yes ! !None ! ! ! + + + + +--------+ + !Cephalic !Yes ! !None ! ! ! + + + + +--------+ + Signature dtt: Deven Ch: 01/25/17 1217 Physician Self Edit
--- NOTE | ~2017-01-22 | CON ---
PATIENT'S NAME: VIVIAN DAVID [facility] AGE: 31 Y [address] ROOM: [address] [place], [place] [address] LOCATION: GPCU ADMIT DATE: 01/22/2017 Consultation DISCHARGE DATE: FAMILY PHYSICIAN: PHYSICIAN, NO ATTENDING PHYSICIAN: Richie TORREZ DATE OF CONSULTATION: 01/25/2017 REFERRING PHYSICIAN: Luis Alberto Bro MD CHIEF COMPLAINT: CKD and hypoalbuminemia, possibly nephrotic syndrome. HISTORY OF PRESENT ILLNESS: A 31-year-old male with history of diabetes mellitus and hypertension, presented with a diabetic foot ulcer and was found to have an albumin of 0.8 with anasarca. Nephrology consultation has been called for the above-mentioned reason. As per the patient, he does not have any health insurance, and was also non- compliant with antidiabetic regimen. His A1c was more than 15, and blood sugar is often in the 400 to 500 range. The patient has never seen any Diabetic specialist, and also never seen a director investment banking in the past. He did give history of a significant diabetic neuropathy and retinopathy. He was seen by an injection molder about a year back when he was told that he needs some laser operation, but he did not do it. During my evaluation, the patient appears to be in comfortable condition, lying on bed, but has significant edema. Blood pressure is marginal. His albumin is 0.2. Protein-creatinine ratio came back as 32. UA always shows 4+ protein and 2+ blood. No autoimmune workup was done in the past. 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 Initially, he had a mild ulcer on his right sole; however, with time, the ulcer increased significantly with worsening of pain and worsening of ulceration size, depth, and surrounding erythema. He did use some gauze and topical medication to control it, but did not improve, and then came to the hospital for further evaluation and management. He denied any fever or chills. No nausea, vomiting, or abdominal pain. No chest pain, shortness of breath, orthopnea, or PND. REVIEW OF SYSTEMS: GENERAL: No fever. No chills or rigor. HEENT: No sore throat. No sinus congestion. CVS: No chest pain. No exertional shortness of breath. Significant leg and dependent edema. RESPIRATORY: No shortness of breath. No cough. No wheezing. GENITOURINARY: No pain with urination. No increased frequency. No nocturia. GASTROINTESTINAL: No abdominal pain. No abdominal distention. No nausea or vomiting. NEUROLOGIC: No weakness. No seizures. SKIN: No rash. No itching. ALLERGIES: No seasonal allergy. No hayfever. ENDOCRINE: No heat intolerance. No cold intolerance. PSYCHIATRIC: No sadness. No crying spells. No history of panic attack.PATIENT'S NAME: VIVIAN DAVID [facility] AGE: 31 Y [address] ROOM: [place] [address] LOCATION: GPCU ADMIT DATE: 01/22/2017 Consultation DISCHARGE DATE: FAMILY PHYSICIAN: PHYSICIAN, NO ATTENDING PHYSICIAN: Richie TORREZ PAST MEDICAL HISTORY: 1. Hypertension. 2. Uncontrolled diabetes complicated with diabetic neuropathy and retinopathy. 3. Congenital heart disease, status post surgery during his childhood, but does not remember what. PAST SURGICAL HISTORY: 1. Fifth left toe amputation. 2. Appendectomy. 3. Multiple incisions and drainage. 4. Congenital heart disease surgery, but could not specify the type or the type of disease. FAMILY HISTORY: He reports that both parents were healthy, and so are the siblings. He does not remember his grandparents. SOCIAL HISTORY: He denied smoking or any drug, occasionally drinks. 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 MEDICATIONS: 1. Levemir 45 units in the evening. 2. NovoLog sliding-scale. 3. Tradjenta. 4. Lovastatin. 5. Lisinopril. PHYSICAL EXAMINATION: VITAL SIGNS: Blood pressure was 153/74, respiratory rate was 18, pulse was 105, and temperature was 98.2. SKIN: [place], warm and dry. EYES: Sclerae clear. No xanthelasmas. ENT: Oral mucosa is pink and moist. No carotid bruits. NECK: Positive JVD. No thyromegaly or lymphadenopathy. CHEST: Respirations are even and unlabored. Lungs are clear to auscultation. HEART: Regular rate and rhythm. No murmurs, rubs or gallops. S1 and S2 were positive. Systolic murmur. ABDOMEN: Soft and nontender. MUSCULOSKELETAL: Gait is normal. EXTREMITIES: Peripheral pulses palpable. No cyanosis, clubbing, or jaundice. At least 1 to 2+ dependent edema. PSYCHIATRIC: Alert and oriented. Mood and affect are appropriate.PATIENT'S NAME: VIVIAN DAVID [facility] AGE: 31 Y [address] ROOM: [place] [address] LOCATION: GPCU ADMIT DATE: 01/22/2017 Consultation DISCHARGE DATE: FAMILY PHYSICIAN: PHYSICIAN, NO ATTENDING PHYSICIAN: Richie TORREZ LABORATORY DATA: Hemoglobin was 7.6, WBC was 13.9, and platelets were 417. Chemistry: Sodium of 143, potassium of 4, chloride of 104, bicarbonate of 20, BUN of 15, creatinine of 1.6, glucose of 170, calcium of 6.9, albumin of 0.7, and magnesium of 1.6. ESR is more than 120. UA with specific gravity of 1.020, pH of 6, blood of 2+, protein of 4+, wbc's of 2 to 5, rbc's of 2 to 5, and rare bacteria. Protein-creatinine ratio of 32. ASSESSMENT AND PLAN: 1. Heavy proteinuria with nephrotic syndrome, possibly diabetic nephropathy with some contribution from hypertensive sclerosis. He denied significant NSAID use. However, no autoimmune workup in the past. The patient's ESR and CRP are very high, which might be due to cellulitis and underlying osteomyelitis versus any other autoimmune disorder. We will first send all autoimmune workup and paraproteinemia workup, although less likely, and we will plan for a CT-guided renal biopsy on Saturday. The patient needs to be n.p.o. after midnight on Saturday. We will start the patient on a low-dose XIMENA inhibitor as an antihypertensive and also for renal protection in context of heavy proteinuria. We will do a 24- hour [id number] quantification as the patient had significant chronic kidney disease as baseline. 2. Chronic kidney disease, stage 3. Creatinine currently at baseline of 1.8 to 2. The patient has significant volume overload, but we will not start to diurese at this point because I believe with significant hypoalbuminemia, patient is intravascularly dry, and further aggressively diuresing him may predispose circulatory volume loss and acute kidney injury. We will do UA and urine lytes including sodium, potassium, and creatinine osmolality. He may need to do a renal ultrasound, as well as a CT-guided renal biopsy on Saturday. 3. Hypertension, not adequately controlled. We will add lisinopril for both antihypertensive medication as well as for renal protection. We will up- titrate as per the dose response. 4. Diabetes. A1c is currently more than 15. The patient does not have insurance. He needs to follow up with one of the physicians here at [facility] for his diabetes, and needs adequate control of his diabetes with both diet and drugs. Goal A1c is less than 7. Thank you for allowing me to participate in this patient's care. We will closely monitor the patient's progress along with you. ROBBIE MANCINI MD /denital /[id number] d: 01/26/17 0017 t: 01/29/17 1512, CONSULTATION REPORT
--- NOTE | ~2017-01-22 | ENPV ---
Vascular Lower Arterial Plethysmography Procedure Demographics Patient Name VIVIAN DAVID Date of Study 01/24/2017 Patient Number [id number] Gender Male Date of 1985 Age 31 Visit Number [id number] Height Accession Number [id number] Weight Room Number G6329 BSA BMI Referring Adali Yanez MD Interpreting Opal Knapp Physician Afshan Quiroz Physician Physician Ordering Adali Yanez Inspector Weights And Measures Physician Computer Science Teacher Raisa Monsalve [facility], [facility] Conclusions Summary TECHNIQUE: Brachial and lower extremity blood pressure measurements are obtained with vascular waveforms obtained. The study includes evaluation at the right and left brachial artery and the arterial system of both lower extremities at the posterior tibial artery and dorsalis pedis artery. Ankle/brachial index is calculated. Findings: Ankle brachial indices are 1.7 bilaterally. This appears to be spuriously elevated in a diabetic patient almost certainly due to peripheral vascular calcification. This study therefore is inconclusive. Procedure Type of Study: Extremities Arteries:Lower Arterial Plethysmography, Ankle/Brachial Indicies. Indications for Study:Ulcer/gangrene. Appropriate Use Criteria:9 Patient Status:Routine. Study Location:Inpatient Portable. Technical Quality:Adequate visualization. Velocities are measured in cm/s ; Diameters are measured in cm Pressures + +----+ +---------+--------+ + + ! ! !Right ! !Left ! ! ! + +----+ +---------+--------+ + + !Location ! !Pressure !Ratio ! !Pressure !Ratio ! + +----+ +---------+--------+ + + !Ankle PT ! !270 !1.71 ! !270 !1.71 ! + +----+ +---------+--------+ + + !DP ! !270 !1.71 ! !270 !1.71 ! + +----+ +---------+--------+ + + - Brachial Pressure:Right: 154.Left:158. - JOHNNIE:Right: 1.71.Left: 1.71. Signature dtt: Cal Joseph dtd: 01/24/17 [facility] Physician Self Edit
--- NOTE | ~2017-01-22 | CON ---
PATIENT'S NAME: VIVIAN DAVID [facility] AGE: 31 Y [address] ROOM: [address] [address] [facility] ADMIT DATE: 01/22/2017 Consultation DISCHARGE DATE: FAMILY PHYSICIAN: PHYSICIAN, NO ATTENDING PHYSICIAN: Richie CAVANAUGH DATE OF CONSULTATION: 01/22/2017 REFERRING PHYSICIAN: Dr. Richie Cavanaugh REASON FOR CONSULTATION: Right foot wound. HISTORY OF PRESENT ILLNESS: This is a 31-year-old male patient who was admitted to [facility] with a right foot ulcer. He has a significant history of uncontrolled type 2 diabetes mellitus, peripheral neuropathy, hypertension, chronic kidney disease, and a left fifth toe amputation secondary to osteomyelitis. The patient endorses right foot pain for the last 2-1/2 weeks. He has previously treated this site with an antibiotic cream that his mother gave him from [place]. He also endorses putting a powder to the site. He notes in the last few days, the wound declining and his father making him come to [facility] for further evaluation. The patient reports he does not have insurance and is not following up regularly with a physician. He does follow [facility] with [facility] and reports taking his medications. He admits to a regular diet and does not follow diabetic restrictions. His hemoglobin A1c is significantly elevated at 15.6%. The patient denies fevers, chills, or sweats. He reports wearing work boots and notes that is where the callus buildup started. He denies chest pain or shortness of breath. He admits to nasal congestion and a dry cough. He has seen Dara Quinones, nurse practitioner, before but reports he is not interested in seeing anybody from diabetic education during his hospital stay. He notes that his family members have had a viral illness and the flu and he is currently getting over the same illness. PAST MEDICAL HISTORY: Uncontrolled type 2 diabetes mellitus, essential hypertension, peripheral neuropathy, and chronic kidney disease. PAST SURGICAL HISTORY: Left fifth toe amputation secondary to osteomyelitis, appendectomy, and congenital heart disease with surgery. FAMILY HISTORY: The patient reports his mother and grandmother had diabetes. PATIENT'S NAME: VIVIAN DAVID [facility] AGE: 31 Y [address] ROOM: [address] [address] LOCATION: [facility] ADMIT DATE: 01/22/2017 Consultation DISCHARGE DATE: FAMILY PHYSICIAN: PHYSICIAN, NO ATTENDING PHYSICIAN: Richie CAVANAUGH SOCIAL HISTORY: The patient lives in [place]. He currently is unemployed and does not have insurance. He reports he does not qualify for disability. He has a remote history of methamphetamine use. He reports he drinks alcohol rarely. He denies tobacco use. 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 ALLERGIES: NO KNOWN DRUG ALLERGIES. CURRENT MEDICATIONS: Please refer to medication administration record. REVIEW OF SYSTEMS: Pertinent positives addressed in the HPI and all the rest are negative. PHYSICAL EXAMINATION: VITAL SIGNS: Temperature 98.4, pulse 94, respirations 18, blood pressure 120/59, pulse oximetry 98% on room air, height 5 feet 8 inches, and 85.1 kg. GENERAL: The patient is . Alert and oriented x3, in no acute distress. HEENT: Head: Normocephalic, atraumatic. Missing front teeth noted, poor oral dentition. NEUROLOGICAL: Grossly nonfocal. Did not perform monofilament testing. ABDOMEN: Flat. EXTREMITIES: +1 pedal pulses. Capillary refill intact. Heel is intact. Warm to touch. Brown staining to lower legs. Obvious left fifth toe amputation. SKIN: Right second to fifth metatarsal head area has an ulcer with significant callus buildup and necrosis to the center. Able to gently debride b=eschar. After debridement, wound bed is about 20% brown necrosis with yellow slough. The rest appears red in color. Pinpoint areas in the center probe to 2 cm, but from what I can tell no bone is probed. Periwound has callused. Moderate amount of bloody drainage. The center had a small amount of purulent exudate with probing. Odor noted. Right plantar aspect of his great toe, wound measures 6.0 cm width x 4.5 cm length x 2.0 cm depth. To the patient's right plantar aspect of his great toe, he has a wound that measures 2.0 cm width x 3.3 cm length x 0.4 cm depth. Small nonpurulent exudate noted. The majority of wound bed is red in color. Periwound has callused. Left plantar aspect of his foot has callus buildup. Left fourth dorsal toe has a small circular scabbed ulcer. LABORATORY DATA: White blood cell count 13.8, hemoglobin 11.9, hematocrit 37.5, platelets 477. Sodium 141, potassium 2.8, chloride 107, bicarb 24, BUN 15, creatinine 1.8, PATIENT'S NAME: VIVIAN DAVID [facility] AGE: 31 Y [address] ROOM: [place] [address] LOCATION: [facility] ADMIT DATE: 01/22/2017 Consultation DISCHARGE DATE: FAMILY PHYSICIAN: PHYSICIAN, NO ATTENDING PHYSICIAN: Richie CAVANAUGH glucose 106. Albumin 0.9. GFR 44. LABORATORY AND DIAGNOSTICS: Right foot x-ray shows no evidence of osteomyelitis. Soft tissue calcifications at the plantar surface of the forefoot and ASVD advanced for age. PROCEDURE NOTE: Today's procedure is selective debridement of necrosis and debris to the patient's right second to fifth metatarsal head diabetic foot ulcer. The area is prepped and draped in the usual fashion and performed in a clean field. I used a sterile #11 blade to excise callus buildup, necrosis, and subcutaneous tissue from the wound bed. The patient tolerated well and had no feeling. I removed a total of 13.5 squared cm, which equates to 50% of the wound bed. Small amount of bloody exudate was noted and hemostasis was achieved by using manual pressure with a gauze pad. I also pared the periwound and the patient's right great toe ulcer. No bleeding noted after paring nonviable callus. ASSESSMENT AND PLAN: Again, this is a 31-year-old male patient who was admitted to [facility] with a right foot wound. 1. Right second to fifth metatarsal head neuropathic foot ulcer secondary to uncontrolled type 2 diabetes mellitus and pressure. Complicated by cellulitis. The patient on IV vancomycin and Zosyn. X-ray unremarkable. Surprisingly, no bone probe during my examination. The patient would benefit from MRI with and without contrast to definitively assess for osteomyelitis especially due to his significant history and noncompliance. Attending MD is waiting until his kidney function is improved. I discussed with the patient an MRI and he reported he may possibly refuse an MRI, as he does not want to make his kidneys any worse. I provided education and encouraged him to discuss with the hospitalist. I instructed nursing to cleanse the foot with soap and water. Then, apply skin prep to the periwounds and cover with dry gauze and Kerlix changing b.i.d. & p.r.n. saturation. Recommend ortho consult. 2. Uncontrolled type 2 diabetes mellitus. The patient told me that he would refuse diabetic education, but obviously would benefit from one. I discussed the importance of daily foot exams. He needs to find a primary care provider on discharge. I suggested internal med. He is concerned about assistance and reports he only is seeing [facility]. I ordered a care management consult to discuss possible options on discharge. I discussed that the patient would benefit from orthotics, but once again does not have the funds to support such treatment. The patient verbalized he does not want an amputation; however, he needs to become compliant. Otherwise, it appears that will be in his future. PATIENT'S NAME: VIVIAN DAVID [facility] AGE: 31 Y [address] ROOM: [address] [address] LOC[facility] ADMIT DATE: 01/22/2017 Consultation DISCHARGE DATE: FAMILY PHYSICIAN: PHYSICIAN, NO ATTENDING PHYSICIAN: Richie CAVANAUGH He is young and it is very unfortunate he has such significant uncontrolled diabetes. I would like to thank Dr. Cavanaugh for this consult. BEN FERNÁNDEZ APRN FOR MD MADDI PATINO/chris /[id number] d: 01/23/17 0054 t: 02/08/17 1013, CONSULTATION REPORT
[2017-01-22 08:06] LABS: BASOPHIL % 0.3 %; BICARBONATE 25.9 mmol/L (18.0-23.0); EOSINOPHIL # 0.3 K/uL (0.0-0.5); EOSINOPHIL % 2.4 %; HEMATOCRIT 35.7 % (37.0-53.0); HEMOGLOBIN 11.9 g/dL (12.0-17.0); IMMATURE GRANULOCYTE # 0.1 K/uL (0.0-0.3); IMMATURE GRANULOCYTE % 0.5 %; LYMPHOCYTE # 1.7 K/uL (0.8-4.0); MCH 26.4 pg (27.0-34.0); MCHC 33.3 gm/dL (32.0-36.5); MCV 79.2 fl (83.0-98.0); MONOCYTE # 0.7 K/uL (0.0-1.0); MONOCYTE % 4.9 %; MPV 8.8 fl (9.4-12.4); NEUTROPHIL % 79.9 %; NRBC % 0 /100WBC (0-0.00); PCO2 40 mmHg (35-45); PLATELET COUNT 477 K/uL (150-450); RBC 4.51 M/uL (4.00-6.00); RDW-CV 12.9 % (11.9-14.6); WBC 13.8 K/uL (4.0-11.0)
[2017-01-22 08:09] LABS: PO2 44 mmHg (80-90)
[2017-01-22 08:35] LABS: CALCIUM 7.5 mg/dL (8.5-10.5); CREATININE 1.8 mg/dL (0.6-1.3); TOTAL PROTEIN 6.7 g/dL (6.0-8.4)
[2017-01-22 08:43] LABS: TOTAL BILIRUBIN 0.2 mg/dL (0.0-1.5)
[2017-01-22] MEDS ORDERED: HUMALOG100 UNIT/1 SUB-Q (14:42)
[2017-01-22] MEDS ORDERED: TRADJENTA5 MG PO (14:43)
[2017-01-22] MEDS ORDERED: LEVEMIR FL100 UNIT/1 SUB-Q (14:43)
[2017-01-22] MEDS ORDERED: LISINOPRIL-HCT1 EAC1 PO (14:43)
[2017-01-22] MEDS ORDERED: TYLENOL EXTRA500 MG PO (14:44)
[2017-01-22] MEDS ORDERED: LOVASTATIN40 MG PO (14:44)
[2017-01-22 18:11] LABS: ALBUMIN 0.9 gm/dL (3.5-5.0); ALK PHOS 105 IU/L (33-138); ALT < 10 IU/L (12-78); ANION GAP 12.8 (10.0-19.0); AST 9 IU/L (10-40); BLOOD UREA NITROGEN 15 mg/dL (6-24); CALCIUM 7.3 mg/dL (8.5-10.5); CHLORIDE 107 mMol/L (96-110); CO2 24 mMol/L (22-32); CREATININE 1.8 mg/dL (0.6-1.3); ESTIMATED GFR (MDRD EQUATION) 44; POTASSIUM 2.8 mMol/L (3.7-5.1); SODIUM 141 mMol/L (135-145); TOTAL BILIRUBIN 0.3 mg/dL (0.0-1.5); TOTAL PROTEIN 6.1 g/dL (6.0-8.4)
[2017-01-23 02:11] LABS: BASOPHIL % 0.2 %; EOSINOPHIL # 0.4 K/uL (0.0-0.5); EOSINOPHIL % 2.3 %; HEMATOCRIT 26.6 % (37.0-53.0); HEMOGLOBIN 8.7 g/dL (12.0-17.0); IMMATURE GRANULOCYTE # 0.1 K/uL (0.0-0.3); IMMATURE GRANULOCYTE % 0.6 %; LYMPHOCYTE # 2.2 K/uL (0.8-4.0); LYMPHOCYTE % 12.7 %; MCH 26.4 pg (27.0-34.0); MCHC 32.7 gm/dL (32.0-36.5); MCV 80.9 fl (83.0-98.0); MONOCYTE # 1.1 K/uL (0.0-1.0); MONOCYTE % 6.6 %; MPV 8.6 fl (9.4-12.4); NEUTROPHIL # (ANC) 13.3 K/uL (1.4-9.0); NEUTROPHIL % 77.6 %; NRBC % 0 /100WBC (0-0.00); PLATELET COUNT 468 K/uL (150-450); RBC 3.29 M/uL (4.00-6.00); WBC 17.1 K/uL (4.0-11.0)
[2017-01-23 02:28] LABS: ALK PHOS 92 IU/L (33-138); ANION GAP 11.4 (10.0-19.0); AST 13 IU/L (10-40); BLOOD UREA NITROGEN 17 mg/dL (6-24); CHLORIDE 111 mMol/L (96-110); CO2 23 mMol/L (22-32); CREATININE 1.7 mg/dL (0.6-1.3); ESTIMATED GFR (MDRD EQUATION) 47; POTASSIUM 3.4 mMol/L (3.7-5.1); SODIUM 142 mMol/L (135-145); TOTAL PROTEIN 5.5 g/dL (6.0-8.4)
[2017-01-23 02:29] LABS: ALBUMIN 0.8 gm/dL (3.5-5.0); ALT < 10 IU/L (12-78); CALCIUM 7.2 mg/dL (8.5-10.5); TOTAL BILIRUBIN 0.2 mg/dL (0.0-1.5)
[2017-01-24 03:48] LABS: BASOPHIL % 0.3 %; EOSINOPHIL # 0.8 K/uL (0.0-0.5); EOSINOPHIL % 5.3 %; HEMATOCRIT 27.6 % (37.0-53.0); HEMOGLOBIN 8.9 g/dL (12.0-17.0); IMMATURE GRANULOCYTE # 0.1 K/uL (0.0-0.3); IMMATURE GRANULOCYTE % 0.6 %; LYMPHOCYTE # 2.4 K/uL (0.8-4.0); LYMPHOCYTE % 16.6 %; MCH 26.6 pg (27.0-34.0); MCHC 32.2 gm/dL (32.0-36.5); MCV 82.6 fl (83.0-98.0); MONOCYTE # 0.9 K/uL (0.0-1.0); MONOCYTE % 6.4 %; MPV 8.8 fl (9.4-12.4); NEUTROPHIL # (ANC) 10.2 K/uL (1.4-9.0); NEUTROPHIL % 70.8 %; NRBC % 0 /100WBC (0-0.00); PLATELET COUNT 469 K/uL (150-450); RBC 3.34 M/uL (4.00-6.00); RDW-CV 13.2 % (11.9-14.6); WBC 14.4 K/uL (4.0-11.0)
[2017-01-24 04:04] LABS: ANION GAP 12.6 (10.0-19.0); CREATININE 1.7 mg/dL (0.6-1.3); MAGNESIUM 1.9 mg/dL (1.8-2.6); PHOSPHORUS 2.7 mg/dL (2.5-4.9); POTASSIUM 3.6 mMol/L (3.7-5.1)
[2017-01-24 04:05] LABS: CALCIUM 7.4 mg/dL (8.5-10.5)
[2017-01-25 03:28] LABS: MCH 26.6 pg (27.0-34.0); MCHC 31.7 gm/dL (32.0-36.5); MCV 83.9 fl (83.0-98.0); MPV 8.7 fl (9.4-12.4); PLATELET COUNT 417 K/uL (150-450); RBC 2.86 M/uL (4.00-6.00); RDW-CV 13.2 % (11.9-14.6); WBC 13.9 K/uL (4.0-11.0)
[2017-01-25 03:29] LABS: HEMOGLOBIN 7.6 g/dL (12.0-17.0)
[2017-01-25 03:43] LABS: CREATININE 1.6 mg/dL (0.6-1.3); MAGNESIUM 1.6 mg/dL (1.8-2.6)
[2017-01-25 03:44] LABS: CALCIUM 6.9 mg/dL (8.5-10.5)
[2017-01-25 05:43] LABS: ABSOLUTE NEUTROPHIL CT (ANC) 10.3 K/uL (1.4-9.0); LYMPHOCYTE # 2.9 K/uL (0.8-4.0); LYMPHOCYTE % 21 %; MONOCYTE # 0.1 K/uL (0.0-1.0); SEGMENTED NEUTROPHIL # 10.3 K/uL (1.4-9.0); SEGMENTED NEUTROPHIL % 74 %
[2017-01-25 14:12] LABS: BILIRUBIN URINE NEGATIVE (NEGATIVE); BLOOD URINE 25 /UL (NEGATIVE); GLUCOSE URINE 250 mg/dL (NEGATIVE); KETONE URINE NEGATIVE (NEGATIVE); LEUKOCYTES URINE NEGATIVE /UL (NEGATIVE); NITRITE URINE NEGATIVE (NEGATIVE); PROTEIN URINE 500 mg/dL (NEGATIVE); UROBILINOGEN URINE NORMAL (NORMAL)
[2017-01-25 14:19] LABS: COLOR URINE YELLOW (YELLOW); TURBIDITY URINE CLEAR (CLEAR)
[2017-01-25 14:21] LABS: BACTERIA URINE RARE (NEGATIVE)
[2017-01-26 04:40] LABS: BASOPHIL # 0.1 K/uL (0.0-0.2); BASOPHIL % 0.4 %; EOSINOPHIL # 0.6 K/uL (0.0-0.5); EOSINOPHIL % 4.4 %; HEMATOCRIT 22.7 % (37.0-53.0); IMMATURE GRANULOCYTE # 0.1 K/uL (0.0-0.3); IMMATURE GRANULOCYTE % 0.5 %; LYMPHOCYTE # 2.4 K/uL (0.8-4.0); LYMPHOCYTE % 18.9 %; MCH 26.4 pg (27.0-34.0); MCHC 32.2 gm/dL (32.0-36.5); MCV 82.2 fl (83.0-98.0); MONOCYTE # 0.7 K/uL (0.0-1.0); MONOCYTE % 5.4 %; MPV 8.6 fl (9.4-12.4); NEUTROPHIL # (ANC) 9.1 K/uL (1.4-9.0); NEUTROPHIL % 70.4 %; NRBC % 0 /100WBC (0-0.00); PLATELET COUNT 423 K/uL (150-450); RBC 2.76 M/uL (4.00-6.00); RDW-CV 13.5 % (11.9-14.6); WBC 12.9 K/uL (4.0-11.0)
[2017-01-26 04:41] LABS: HEMOGLOBIN 7.3 g/dL (12.0-17.0)
[2017-01-26 04:57] LABS: ANION GAP 13.5 (10.0-19.0); CREATININE 1.5 mg/dL (0.6-1.3); MAGNESIUM 1.9 mg/dL (1.8-2.6); POTASSIUM 3.5 mMol/L (3.7-5.1)
[2017-01-26 05:04] LABS: CALCIUM 7.4 mg/dL (8.5-10.5)
[2017-01-26 20:13] LABS: URINE CREAT VOL 3920 mL
[2017-01-27 04:03] LABS: BASOPHIL # 0.1 K/uL (0.0-0.2); BASOPHIL % 0.4 %; EOSINOPHIL # 0.6 K/uL (0.0-0.5); EOSINOPHIL % 5.3 %; HEMATOCRIT 23.2 % (37.0-53.0); IMMATURE GRANULOCYTE # 0.1 K/uL (0.0-0.3); IMMATURE GRANULOCYTE % 0.4 %; LYMPHOCYTE # 2.8 K/uL (0.8-4.0); LYMPHOCYTE % 22.8 %; MCH 26.5 pg (27.0-34.0); MCHC 32.3 gm/dL (32.0-36.5); MONOCYTE # 0.6 K/uL (0.0-1.0); MONOCYTE % 4.7 %; MPV 8.1 fl (9.4-12.4); NEUTROPHIL % 66.4 %; NRBC % 0 /100WBC (0-0.00); PLATELET COUNT 447 K/uL (150-450); RBC 2.83 M/uL (4.00-6.00); RDW-CV 13.3 % (11.9-14.6); WBC 12.1 K/uL (4.0-11.0)
[2017-01-27 04:05] LABS: HEMOGLOBIN 7.5 g/dL (12.0-17.0)
[2017-01-27 04:13] LABS: INR - (THERAPEUTIC) 0.96 (0.92-1.07); PROTIME 10.1 SECONDS (9.8-11.4)
[2017-01-27 04:14] LABS: PTT 44 SECONDS (25-32)
[2017-01-28 04:56] LABS: BASOPHIL # 0.1 K/uL (0.0-0.2); BASOPHIL % 0.6 %; EOSINOPHIL # 0.6 K/uL (0.0-0.5); EOSINOPHIL % 5.8 %; HEMATOCRIT 21.6 % (37.0-53.0); IMMATURE GRANULOCYTE # 0.1 K/uL (0.0-0.3); IMMATURE GRANULOCYTE % 0.6 %; LYMPHOCYTE # 2.3 K/uL (0.8-4.0); LYMPHOCYTE % 21.2 %; MCHC 31.5 gm/dL (32.0-36.5); MCV 82.4 fl (83.0-98.0); MONOCYTE # 0.5 K/uL (0.0-1.0); MONOCYTE % 4.4 %; MPV 8.1 fl (9.4-12.4); NEUTROPHIL # (ANC) 7.3 K/uL (1.4-9.0); NEUTROPHIL % 67.4 %; NRBC % 0 /100WBC (0-0.00); PLATELET COUNT 464 K/uL (150-450); RBC 2.62 M/uL (4.00-6.00); RDW-CV 13.3 % (11.9-14.6); WBC 10.8 K/uL (4.0-11.0)
[2017-01-28 05:04] LABS: HEMOGLOBIN 6.8 g/dL (12.0-17.0)
[2017-01-28 05:08] LABS: INR - (THERAPEUTIC) 0.95 (0.92-1.07)
[2017-01-28 05:12] LABS: ANION GAP 9.9 (10.0-19.0); CALCIUM 7.9 mg/dL (8.5-10.5); CREATININE 1.6 mg/dL (0.6-1.3); MAGNESIUM 1.7 mg/dL (1.8-2.6); POTASSIUM 3.9 mMol/L (3.7-5.1)
[2017-01-28 19:35] LABS: BASOPHIL # 0.1 K/uL (0.0-0.2); BASOPHIL % 0.5 %; EOSINOPHIL # 0.5 K/uL (0.0-0.5); EOSINOPHIL % 4.2 %; HEMATOCRIT 25.6 % (37.0-53.0); IMMATURE GRANULOCYTE # 0.1 K/uL (0.0-0.3); IMMATURE GRANULOCYTE % 0.6 %; LYMPHOCYTE # 2.3 K/uL (0.8-4.0); LYMPHOCYTE % 19.9 %; MCH 26.1 pg (27.0-34.0); MCHC 31.3 gm/dL (32.0-36.5); MCV 83.4 fl (83.0-98.0); MONOCYTE # 0.5 K/uL (0.0-1.0); MPV 8.3 fl (9.4-12.4); NEUTROPHIL # (ANC) 8.1 K/uL (1.4-9.0); NEUTROPHIL % 70.8 %; NRBC % 0 /100WBC (0-0.00); RBC 3.07 M/uL (4.00-6.00); RDW-CV 13.5 % (11.9-14.6); WBC 11.4 K/uL (4.0-11.0)
[2017-01-28 19:41] LABS: PLATELET COUNT 558 K/uL (150-450)
[2017-01-29 05:04] LABS: BASOPHIL % 0.4 %; EOSINOPHIL # 0.5 K/uL (0.0-0.5); HEMATOCRIT 22.6 % (37.0-53.0); IMMATURE GRANULOCYTE # 0.1 K/uL (0.0-0.3); IMMATURE GRANULOCYTE % 0.5 %; LYMPHOCYTE # 2.3 K/uL (0.8-4.0); LYMPHOCYTE % 21.9 %; MCH 26.2 pg (27.0-34.0); MCHC 31.4 gm/dL (32.0-36.5); MCV 83.4 fl (83.0-98.0); MONOCYTE # 0.6 K/uL (0.0-1.0); MONOCYTE % 5.5 %; MPV 8.1 fl (9.4-12.4); NEUTROPHIL # (ANC) 6.9 K/uL (1.4-9.0); NEUTROPHIL % 66.7 %; NRBC % 0 /100WBC (0-0.00); PLATELET COUNT 471 K/uL (150-450); RBC 2.71 M/uL (4.00-6.00); RDW-CV 13.4 % (11.9-14.6); WBC 10.4 K/uL (4.0-11.0)
[2017-01-29 05:09] LABS: HEMOGLOBIN 7.1 g/dL (12.0-17.0)
[2017-01-29 05:15] LABS: ANION GAP 11.8 (10.0-19.0); CALCIUM 7.9 mg/dL (8.5-10.5); CREATININE 1.7 mg/dL (0.6-1.3); MAGNESIUM 1.9 mg/dL (1.8-2.6); POTASSIUM 3.8 mMol/L (3.7-5.1)
[2017-01-29 13:55] LABS: CH50 COMPLEMENT >185 (60-185)
[2017-01-30 05:26] LABS: HEMATOCRIT 21.6 % (37.0-53.0)
[2017-01-30 05:28] LABS: HEMOGLOBIN 6.8 g/dL (12.0-17.0)
[2017-01-30 05:43] LABS: ANION GAP 12.7 (10.0-19.0); CALCIUM 7.6 mg/dL (8.5-10.5); CREATININE 1.9 mg/dL (0.6-1.3); MAGNESIUM 1.9 mg/dL (1.8-2.6); POTASSIUM 3.7 mMol/L (3.7-5.1)
[2017-01-30 06:32] LABS: HEMATOCRIT 22.4 % (37.0-53.0)
[2017-01-30 06:42] LABS: HEMOGLOBIN 6.9 g/dL (12.0-17.0)
[2017-01-31 04:25] LABS: HEMATOCRIT 20.6 % (37.0-53.0)
[2017-01-31 04:32] LABS: HEMOGLOBIN 6.5 g/dL (12.0-17.0)
[2017-01-31 04:41] LABS: ANION GAP 10.4 (10.0-19.0); CREATININE 1.9 mg/dL (0.6-1.3); PHOSPHORUS 3.7 mg/dL (2.5-4.9); POTASSIUM 3.4 mMol/L (3.7-5.1)
[2017-01-31] MEDS ORDERED: NORVASC10 MG PO (13:40)
[2017-01-31] MEDS ORDERED: AUGMENTIN250 MG PO (13:45)
[2017-01-31] MEDS ORDERED: VASOTEC10 MG PO (13:46)
[2017-01-31] MEDS ORDERED: LEVEMIR FL100 UNIT/1 SUB-Q (13:50)
[2017-01-31] MEDS ORDERED: PROTONIX40 MG PO (13:57)
[2017-01-31] MEDS ORDERED: CRESTOR10 MG PO (13:59)
[2017-01-31] MEDS ORDERED: HYDRODIURIL25 MG PO (14:19)
[2017-01-31] MEDS ORDERED: HUMALOG KW200 UNIT/1 SUB-Q (14:19)
[2017-05-07] MEDS ORDERED: LISINOPRIL-HCT1 EAC1 PO (15:24)
[2017-05-07] MEDS ORDERED: TYLENOL EXTRA500 MG PO (15:27)
== END 2017-01-31 17:30 | disposition disaster alternative care site (69) | DRG 854 ==
LOC: GMED 07:36 → GPCU 09:05
PROVIDERS: Emergency Medicine; Hospitalist; Internal Medicine; Internal Medicine Nephrology; Nurse Practitioner; Radiology Diagnostic Radiology; ADMIT Internal Medicine
PROC: 0TB13ZX Excision of Left Kidney, Percutaneous Approach, Diagnostic (ICD-10-PCS; 2017-01-22)
PROC: 0JBQ0ZZ Excision of Right Foot Subcutaneous Tissue and Fascia, Open Approach (ICD-10-PCS; principal; 2017-01-24)
DX: A41.81 Sepsis due to Enterococcus (principal); M86.9 Osteomyelitis, unspecified; E11.52 Type 2 diabetes mellitus with diabetic peripheral angiopathy with gangrene; E11.21 Type 2 diabetes mellitus with diabetic nephropathy; N17.9 Acute kidney failure, unspecified; N18.3 Chronic kidney disease, stage 3 (moderate); L03.115 Cellulitis of right lower limb; A41.2 Sepsis due to unspecified staphylococcus; E11.319 Type 2 diabetes mellitus with unspecified diabetic retinopathy without macular edema; E11.621 Type 2 diabetes mellitus with foot ulcer; E78.5 Hyperlipidemia, unspecified; E86.0 Dehydration; E87.6 Hypokalemia; E11.42 Type 2 diabetes mellitus with diabetic polyneuropathy; I12.9 Hypertensive chronic kidney disease with stage 1 through stage 4 chronic kidney disease, or unspecified chronic kidney disease; E11.65 Type 2 diabetes mellitus with hyperglycemia
CPT/HCPCS: A9576; J1644; J2001; J2405; J2543; J2916; J3370; J3475; J3480; J7030; J7040; J7050; J7060; P9047; Q4081

== ENCOUNTER 2017-02-28 09:53 | Inpatient (IN) | payer SELFPAY ==
[~2017-02-28] VITALS: Ht 180.3 cm; Wt 93.1 kg
--- NOTE | ~2017-02-28 | OR ---
PATIENT'S NAME: VIVIAN DAVID [facility] AGE: 31 Y [address] 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 POSTOPERATIVE DIAGNOSIS: Critical limb ischemia of the right lower extremity. PROCEDURES: Aortogram, right lower extremity angiogram, and anterior tibial and peroneal artery angioplasties. MANAGER ACUTE: Adilene. ANESTHESIA: MAC, local. ESTIMATED BLOOD LOSS: 25 mL. OPERATIVE FINDINGS: Recannulization of the anterior tibia as well as the peroneal vessel. DESCRIPTION OF PROCEDURE: The patient was brought to the slabber, placed supine on the slabber table, prepped and draped in a sterile manner. Preoperative time-out was performed. We gained access via the left groin. We used ultrasound guidance. We infiltrated the skin with 1% lidocaine and then used a micropuncture kit to gain access to the artery. We then exchanged using Seldinger technique for a 5-Bolivian short sheath. We went up in the aorta using 0.035 Glidewire as well as Omni Flush catheter and performed the aortogram, which showed patent common external internal iliac artery as well as patent renal arteries. We then went up and over the aortic bifurcation. We parked our catheter in the common femoral on the right. We then performed a series of angiograms. The profunda was opened; SFA was patent; popliteal artery was patent; anterior tibia was occluded proximally; the posterior tibia was patent proximally, but then occluded distally in the end and then the peroneum had a high-grade near occlusive lesion. We exchanged over a Magic Torque wire for a 6-Bolivian Destination sheath. We then used an 0.014 wire to cross first the anterior tibial lesion. We gave 5000 units of heparin. We angioplastied with a 2 mm and then eventually a 4 mm balloon to relieve the near occlusion of the anterior tibia. There was still a large piece of calcium within the anterior tibia. We, however, were able to recannulize the vessel. We then used a wire to cross the peroneum, which we would be PATIENT'S NAME: VIVIAN DAVID [facility] AGE: 31 Y [address] ROOM: [address] [address] LOCATION: [facility] ADMIT DATE: 02/28/2017 OR/Procedure Report DISCHARGE DATE: FAMILY PHYSICIAN: PHYSICIAN, NO ATTENDING PHYSICIAN: SHANELL LE angioplastied with a 3 mm balloon. We removed the sheath. We placed an Angio- Seal for hemostasis. The patient tolerated the procedure well, transferred to recovery room, and back up to the floor. MD DEE DEE PATINO/chris /[id number] d: 03/05/178 t: 03/06/17 1630, OPERATIVE SUMMARY
--- NOTE | ~2017-02-28 | CON ---
PATIENT'S NAME: VIVIAN DAVID [facility] AGE: 31 Y [address] ROOM: [place] [address] LOCATION: [facility] ADMIT DATE: 02/28/2017 Consultation DISCHARGE DATE: FAMILY PHYSICIAN: PHYSICIAN, NO ATTENDING PHYSICIAN: SHANELL STRATTON DATE OF CONSULTATION: 03/01/2017 REFERRING PHYSICIAN: Shanell Stratton MD REASON FOR CONSULT: Right foot wound. HISTORY OF PRESENT ILLNESS: This is a 31-year-old male patient who was admitted to [facility] with hyperglycemia. He has a history of uncontrolled type 2 diabetes mellitus with noncompliance. I saw him during his last hospitalization stay at the end of December. He notes 2 weeks ago, his right third toe turned black. He has been applying normal saline soaks to his right foot b.i.d. per Dr. Bro's instructions. He denies constitutional symptoms including fevers, chills, or sweats. He denies pain. He does complain of some purulent exudate from the right foot ulcer. [facility]. Last hospitalization stay, Dr. Bro debrided his right foot. PAST MEDICAL HISTORY: Type 2 diabetes mellitus with peripheral neuropathy, essential hypertension, and chronic kidney disease. PAST SURGICAL HISTORY: Left fifth toe amputation secondary to osteomyelitis, appendectomy, and congenital heart disease with surgery. FAMILY HISTORY: Positive for diabetes. SOCIAL HISTORY: The patient lives in [place]. He is currently unemployed and does not have insurance. He reports he does not qualify for disability due to being a "felon." He has a remote history of methamphetamine use. He reports rare alcohol usage. He denies tobacco use. ALLERGIES: NO KNOWN DRUG ALLERGIES. CURRENT MEDICATIONS: Please refer to the medication administration record. PATIENT'S NAME: VIVIAN DAVID [facility] AGE: 31 Y [address] ROOM: [address] [address] LOCATION: [facility] ADMIT DATE: 02/28/2017 Consultation DISCHARGE DATE: FAMILY PHYSICIAN: PHYSICIANLINDA ATTENDING PHYSICIAN: SHANELL STRATTON REVIEW OF SYSTEMS: Pertinent positives as addressed in HPI and all others are negative. PHYSICAL EXAMINATION: VITAL SIGNS: Temperature 98.5, pulse 109, respirations 16, blood pressure 130/74, pulse oximetry 99% on room air, height 5 feet 11 inches, weight 88.9 kg. GENERAL: The patient is alert and oriented. Talkative. HEENT: Head: Normocephalic, atraumatic. Puffy eyelids. Anicteric sclerae. Front teeth missing. CARDIOVASCULAR: Deferred. ABDOMEN: Flat. NEUROLOGIC: Grossly nonfocal. Did not perform monofilament testing. EXTREMITIES: +1 pedal pulses at best. Both Dopplers on the floor were not working, so I was unable to Doppler pedal pulses. Capillary refill intact. Heel intact. Extremities are warm to touch. Brown staining to lower legs. Obvious left fifth toe amputation. SKIN: To the patient's right 2nd to 5th metatarsal head area, he has a plantar ulcer that measures 4.0 cm width x 4.5 cm length x 0.7 cm depth. Wound bed is pale with yellow slough. Large amount of yellow exudate. Periwound is slightly callus. Significant odor noted. Right 3rd toe is black and necrotic. Left 4th toe has blanchable redness. LABORATORY AND DIAGNOSTIC DATA: Please refer to the patient's chart. MRI pending. ASSESSMENT AND PLAN: Again, this is a 31-year-old male patient who is admitted to [facility] [place] with hypoglycemia. 1. Right foot plantar wound with evidence of gangrene with right 3rd necrotic toe. Obvious infective process occurring. The patient will start vancomycin today. Currently, MRI is pending. Dr. Casanova is on the case. Most likely, appears the patient will need a right third toe amputation with an I and D of his right foot. He is at high risk for amputation. The patient reports he is not sure if he is on board with amputation but understands his right third toe will most likely have to be removed. I instructed nursing to apply Betadine and bulky Kerlix to the right foot wound changing twice daily and p.r.n. saturation. 2. Uncontrolled type 2 diabetes mellitus with peripheral neuropathy. The patient would benefit from diabetic ed. consult. The patient is very young and it is unfortunate he continues to have such significant issues and a hard time controlling his diabetes. I will continue to follow as needed. PATIENT'S NAME: VIVIAN DAVID [facility] AGE: 31 Y [address] ROOM: [address] [place], [place] [address] [facility] ADMIT DATE: 02/28/2017 Consultation DISCHARGE DATE: FAMILY PHYSICIAN: PHYSICIAN, LINDA ATTENDING PHYSICIAN: SHANELL STRATTON I would like to thank Dr. Stratton for this consult. BEN FERNÁNDEZ APRN FOR MD MADDI PATINO/chris /[id number] d: 03/02/17 1855 t: 03/13/17 1544, CONSULTATION REPORT
--- NOTE | ~2017-02-28 | HP ---
PATIENT'S NAME: VIVIAN DAVID [facility] AGE: 31 Y [address] ROOM: [id number] [place], [place] [address] LOCATION: [facility] ADMIT DATE: 02/28/2017 History & Physical DISCHARGE DATE: FAMILY PHYSICIAN: PHYSICIAN, NO ATTENDING PHYSICIAN: SHANELL LE DATE OF SERVICE: CHIEF COMPLAINT: High blood glucose level. HISTORY OF PRESENT ILLNESS: A 31-year-old with a past medical history of brittle, hard to control diabetes mellitus, poor compliance, complicated by nephropathy as well as peripheral neuropathy; history of hypertension; and CKD who was admitted to the emergency department when he got a call from the clinic that his blood glucose level is really high and he needs to go to the emergency department. These labs were drawn yesterday. He was in our facility one month ago with a diabetic foot which was irrigated and debrided and was discharged home on oral antibiotics. He follows with Dr. Luis Alberto Bro for that. He also developed dry gangrene of his right second toe as well. On my encounter today, he says that he is feeling fine, but he did complain that he had been having a lot of thirst in the last couple of days accompanied by increased urinary frequency. He denied any headache, but did endorse having some lightheadedness. No trouble swallowing. No chest pain. No shortness of breath. No abdominal pain. No burning on urination. He said that he did notice some purulent drainage coming out of his foot ulcer which is located on the plantar side of the right foot. He had been soaking it in wet dressing since the discharge. He does not complain of a lot of pain in the foot though. He said he had been compliant with his insulin dosing at home, which is 20 units of Levemir, managed by Dr. Lopes and Dr. Waters. REVIEW OF SYSTEMS: All other systems were reviewed and were negative except what is mentioned in the HPI. ALLERGIES: NO KNOWN DRUG ALLERGIES. PAST MEDICAL HISTORY: Type 2 diabetes mellitus complicated by peripheral neuropathy and chronic kidney disease. Of note, he had a renal biopsy last time for proteinuria and was diagnosed with diabetic nephropathy. Left fifth toe amputation in the past. Appendectomy. He had congenital heart disease and surgery, does not remember what kind. PATIENT'S NAME: VIVIAN DAVID [facility] AGE: 31 Y [address] ROOM: [id number] [place], [place] [address] LOCATION: [facility]U ADMIT DATE: 02/28/2017 History & Physical DISCHARGE DATE: FAMILY PHYSICIAN: PHYSICIAN, NO ATTENDING PHYSICIAN: SHANELL LE FAMILY HISTORY: Positive for diabetes. SOCIAL HISTORY: Does not smoke or drink alcohol. MEDICATIONS: Being reconciled right now. PHYSICAL EXAMINATION: VITAL SIGNS: Heart rate 113, blood pressure 128/68, 16, saturating 95% on room air. GENERAL: No acute distress. Alert and oriented x3. HEENT: Head: Atraumatic, normocephalic. Eyes: Nonicteric. No pallor. Oropharynx: Dry mucous membranes. CARDIOVASCULAR: Tachycardic. S1 and S2. No murmurs, gallops, or rubs. LUNGS: Clear to auscultation bilaterally. ABDOMEN: Soft, nontender, and nondistended. Bowel sounds present. EXTREMITIES: Right plantar foot 2 x 2 cm ulcer with purulent drainage. Probe reaching the underlying bone. Right second toe dry gangrene. Pulses palpable. Left foot fifth toe metatarsal missing secondary to amputation. SKIN: Stasis dermatitis noted on both extremities. Dermatitis noticed on the back of the neck as well. NEUROLOGIC: Cranial nerves 2 through 12 intact. No motor or sensory deficit noted. PSYCHIATRIC: Normal affect, mood, and speech. MUSCULOSKELETAL: No muscle tenderness noted. LABORATORY AND DIAGNOSTIC DATA: Chest x-ray from the emergency department did show hazy right basilar opacity which could reflect atelectasis or infiltrate. CBC showed hemoglobin of 9.5, white count of 9.2, and platelets of 381. Procalcitonin 0.14. Complete metabolic panel was impressive for sodium of 132, potassium of 2.9, chloride 99, bicarbonate of 23, glucose of 706, calcium 7.9, BUN 17, and creatinine 1.7. Total protein 6.2. Hypoalbuminemic with albumin of 1.3. Alkaline phosphatase of 264, AST 15, and ALT 11. Troponin is negative. CRP high at 1.86. Hemoglobin A1c is 14. Acetone in the blood is negative. Venous blood gas did not show any acidosis. ASSESSMENT: 1. Severe hyperglycemia accompanied by dehydration. 2. Type 2 diabetes mellitus complicated by nephropathy as well as polyneuropathy, uncontrolled. 3. Right foot diabetic ulcer with purulence and drainage. PATIENT'S NAME: VIVIAN DAVID [facility] AGE: 31 Y [address] ROOM: [address] [place], [place] [address] [facility] ADMIT DATE: 02/28/2017 History & Physical DISCHARGE DATE: FAMILY PHYSICIAN: PHYSICIAN, NO ATTENDING PHYSICIAN: SHANELL LE 4. Hypokalemia. 5. Acute kidney injury on chronic kidney disease, stage 3. Baseline creatinine 1.6 to 1.7. 6. Hypertension. 7. Proteinuria. 8. Diabetic nephropathy. 9. Very likely osteomyelitis of the right foot. PLAN: We are going to admit this patient and start aggressive volume resuscitation. We will give intravenous as well as p.o. potassium to raise the serum potassium. Once adequate level of potassium achieved, we will start insulin drip to control the blood glucose level. We will correct further electrolyte abnormalities. We will obtain urine electrolytes as well. We are going to get an MRI of the right foot to look for osteomyelitis. Vascular Surgery has been consulted, and did talk to Dr. Casanova about it. We are going to get ABIs of the bilateral lower legs as well as arterial Dopplers. We are going to hold off antibiotics at this point as the patient does not appear to be septic. Once more definitive cultures from the OR are available, we will tailor the antibiotics then. I spent one hour in providing care to this patient. Greater than 50% of the time was spent regarding counseling and explaining the pathophysiology of the disease and the reason for diabetic ulcer, especially the dry gangrene, which the patient had, and he had questions about that. All questions were answered and addressed. Concerns were addressed. Discussed the current prognosis and the plan at this point. The patient agreed to our plan at this point. We are going to provide DVT prophylaxis with heparin at this point. Activity as tolerated. Diabetic diet. MD EZEKIEL ISLAS/chris /[id number] D: [id number] T: [id number] HISTORY & PHYSICAL
--- NOTE | ~2017-02-28 | ER ---
PATIENT'S NAME: VIVIAN DAVID [facility] AGE: 31 Y [address] ROOM: [address] [address] LOCATION: GPCU ADMIT DATE: 02/28/2017 ER/Outpatient Report DISCHARGE DATE: 03/11/2017 FAMILY PHYSICIAN: PHYSICIAN, NO ATTENDING PHYSICIAN: Lola Martin CORRECTED COPY - WORK TYPE / 03-25-2017 / [place] TIME OF ARRIVAL: 0953 hours. TIME SEEN: 1010 hours. IDENTIFICATION: A 31-year-old male. CHIEF COMPLAINT: Illness. HISTORY OF PRESENT ILLNESS: The patient is a 31-year-old male, who was hospitalized January 22 to January 31 with sepsis and right diabetic foot cellulitis. He has had a right foot ulcer evaluated by Dr. Casanova and also had an MRI showing no evidence of osteomyelitis and was treated with IV antibiotics and then discharged home on Augmentin for 7 days. He has since stopped taking the Augmentin as he has completed it. He did see Dr. Bro one week ago, but missed his followup appointment with him on Saturday. He was seen at the [facility] yesterday and had some lab work done, some critical lab returned today, so they called him and recommended that he come to the ER. The critical labs that I can see were a blood sugar of 837, sodium of 127. His white count was 7.7. He says that his blood sugars have been up and down, but mostly pretty good. He states his Accu-Chek this morning was 275. He has been doing dressing changes at home and states his parents have been helping him. He denies any other problems. PAST MEDICAL HISTORY: ALLERGIES: NO KNOWN DRUG ALLERGIES. CURRENT MEDICATIONS: The patient states he is taking lovastatin, lisinopril, Levemir, Humalog, Tradjenta, and two other medications. His discharge medications indicate that he was to stop his lisinopril, hydrochlorothiazide, but he states that he has not done that. Discharge medications included acetaminophen, amlodipine 10 mg daily, Augmentin 500 mg b.i.d. for seven days. Enalapril 10 mg daily, insulin [facility] AGE: 31 Y [address] ROOM: [facility] [place], [place] [address] LOCATION: GPCU ADMIT DATE: 02/28/2017 ER/Outpatient Report DISCHARGE DATE: 03/11/2017 FAMILY PHYSICIAN: PHYSICIAN, NO ATTENDING PHYSICIAN: Lola Martin Levemir 10 units twice daily, Protonix 40 mg daily, rosuvastatin 10 mg daily, Humalog Quick Pen sliding scale, hydrochlorothiazide 25 mg 1/2 tablet daily. MEDICAL PROBLEMS: Recent hospitalization for sepsis, right diabetic foot cellulitis, diabetic nephropathy, proteinuria, anemia, poorly-controlled diabetes insulin- requiring, hypertension, hypoalbuminemia, PRIOR SURGERIES: Fifth left toe amputation, appendectomy, multiple incisions and drainage, congenital heart disease surgery per records, but the patient could not state what that was, left kidney biopsy performed January 28, results are pending. Wound culture from January 24 of his right foot Staph aureus like growth Enterococcus faecalis light growth. FAMILY HISTORY: Mother and father healthy. SOCIAL HISTORY: The patient is unemployed. He is living in [place] with his parents. Tobacco use, denies. Alcohol use, rarely. Drug use, denies. REVIEW OF SYSTEMS: All systems reviewed and negative other than what is noted in the HPI. PHYSICAL EXAMINATION: VITAL SIGNS: Height 5 feet 11 inches and weight 90.2 kg, blood pressure 160/79, pulse 106, respirations 18, temp 98.3, sats 98% on room air. GENERAL: A 31-year-old male in no acute distress. HEENT: Head normocephalic, atraumatic. Eyes, pupils equal and reactive to light and accommodation. Extraocular movements intact. Nose, mucosa pink. No lesions. Mouth, no lesions. Pharynx benign. NECK: Supple. No lymphadenopathy. No nuchal rigidity. LUNGS: Clear to auscultation. Breath sounds are equal. No rhonchi, wheezes, or rales. HEART: Sinus tachycardia. No murmur, rub, or gallop. ABDOMEN: Bowel sounds present. Soft, nondistended, nontender. SKIN: [place], warm, and dry. The patient has a large ulceration on the sole of his right foot with purulent foul-smelling drainage which was sent for culture, it is slightly tender to palpation. The patient's right third toe is black in color with some surrounding erythema as well. Dorsalis pedis pulses 1+. Sensation slightly diminished to light touch. No calf tenderness. No lower extremity edema. NEURO: The patient is alert and oriented x4. Cranial nerves 2 through 12 grossly intact. Motor strength 5/5 throughout. Sensation is intact to light PATIENT'S NAME: VIVIAN DAVID [facility] AGE: 31 Y [address] ROOM: [place] [address] LOCATION: GPCU ADMIT DATE: 02/28/2017 ER/Outpatient Report DISCHARGE DATE: 03/11/2017 FAMILY PHYSICIAN: PHYSICIAN, NO ATTENDING PHYSICIAN: Lola Martin with the exception of a stocking distribution of his lower extremities. Hemoglobin 9.5 which is improved from 6.5, January 31, hematocrit 28.4, platelets 381, white count 9.2, normal differential. INR 0.89, sedimentation rate 117, procalcitonin 0.14. EKG sinus rhythm at 91 beats per minute. No acute ST elevation or depression. UA 1000 mg/dL of glucose, otherwise negative. Sodium 132, potassium low at 2.9, potassium was 3.4 on January 31. Chloride 99, CO2 of 23, BUN 17, creatinine 1.7, creatinine was 1.9 on January 31, blood sugar 706, albumin 1.3. Liver enzymes normal. Troponin I less than 0.040. CRP elevated at 1.86, hemoglobin A1c 14.6, lactate 1.0, venous pH 7.42, serum ketones are negative. One-view chest x-ray, he has the opacity in the right base, pending Radiology over-read. MRI of his foot on January 24 showed no evidence of osteomyelitis. IMPRESSION AND PLAN: 1. Hyperglycemia. 2. Right foot ulcer with cellulitis and possible osteomyelitis meeting systemic inflammatory response syndrome criteria, but does not meet criteria for sepsis. 3. Hypokalemia. KCl 40 mEq in 250 mL of normal saline to run over 4 hours was initiated in the ER to be given prior to initiating insulin. The patient received 2 L of normal saline in the emergency room. 3rd L at 150 mL/h. The patient will be admitted per hospitalist Dr. Stratton, specifically no antibiotics were initiated in the emergency room prior to Orthopedic consultation. The patient remains hemodynamically stable throughout his stay in the emergency room and was taken to the floor in stable condition. Blood pressure 152/78, pulse 106, respirations 17, temp 98.3, and sats 98% on room air. OLI LOPEZ MD CAR/modl /[id number] CORRECTED COPY - WORK TYPE / 03-25-2017 / KLD d: 02/28/17 1755 t: 03/26/17 0913, OUTPATIENT REPORT
--- NOTE | ~2017-02-28 | OR ---
PATIENT'S NAME: VIVIAN DAVID [facility] AGE: 31 Y [address] ROOM: [place] [address] LOCATION: GPCU ADMIT DATE: 02/28/2017 OR/Procedure Report DISCHARGE DATE: 03/11/2017 FAMILY PHYSICIAN: PHYSICIAN, NO ATTENDING PHYSICIAN: Caitlin Stratton SURGEON: Eulalio Casanova MD [employer] ACTIVITY: DATE OF PROCEDURE: 03/06/2017 PREOPERATIVE DIAGNOSIS: Diabetic infected foot. POSTOPERATIVE DIAGNOSIS: Diabetic infected foot. PROCEDURE: Right 3rd toe amputation with debridement of the plantar surface of foot. REDEVELOPMENT MANAGER: OR staff. ANESTHESIA: General. ESTIMATED FLUID LOSS: 20 mL. OPERATIVE FINDINGS: 1. Resection of 3rd toe. 2. Healthy-sounding bone and debridement of necrotic tissue from right foot. DESCRIPTION OF PROCEDURE: The patient was brought to the operating room, placed supine on the operating room table, prepped and draped in a sterile manner. Preoperative time-out was performed. After being placed under general anesthesia, the patient was on antibiotics on the floor. We sharply debrided the necrotic tissue from the plantar surface of the foot until we had healthy bleeding tissues with no further evidence of necrosis. We then turned our attention to the third toe which was gangrenous. We made a circular incision at the base of the toe, transected the metatarsal bone and then resected the bone back until we had healthy sounding bone. Cultures were sent. Wounds were copiously irrigated with antibiotic solution and then packed with Dakin solution. The patient tolerated the procedure well and transferred to recovery room and back to the floor. EULALIO CASANOVA MD [facility]/modl PATIENT'S NAME: VIVIAN DAVID [facility] AGE: 31 Y [address] ROOM: [place] [address] LOCATION: GPCU ADMIT DATE: 02/28/2017 OR/Procedure Report DISCHARGE DATE: 03/11/2017 FAMILY PHYSICIAN: PHYSICIAN, NO ATTENDING PHYSICIAN: Caitlin Stratton /[id number] d: 03/13/17 2251 t: 03/15/17 1833, OPERATIVE SUMMARY
--- NOTE | ~2017-02-28 | ENPV ---
Vascular Lower Extremities Arterial Duplex Procedure Demographics Patient Name VIVIAN DAVID Date of Study 02/28/2017 Patient Number [id number] Gender Male Date of 1985 Age 31 Visit Number [id number] Height Accession Number [id number] Weight Room Number G6325 BSA BMI Referring Interpreting Edilberto Liu MD Physician Physician Physician [employer] Physician Aluminum Molder Sandrine Finnegan T, [facility] Conclusions Summary No evidence of significant peripheral arterial in either lower extremity by duplex imaging. Triphasic waveforms with excellent velocities throughout. Procedure Type of Study: Extremities Arteries:Lower Extremities Arterial Duplex, Arterial Duplex Lower Extremity Bilateral. Indications for Study:Ulcer/gangrene. Appropriate Use Criteria:6 Patient Status:Routine. Study Location:Inpatient Portable. Technical Quality:Adequate visualization. Velocities are measured in cm/s ; Diameters are measured in cm LE Duplex Measurements + ++-----+ +----+---+ + ! !!Right! !Left! ! ! + ++-----+ +----+---+ + !Location !!PSV !Wave Desc. ! !PSV!Wave Desc. ! + ++-----+ +----+---+ + !Femoral !!137 !Triphasic ! !149!Triphasic ! + ++-----+ +----+---+ + !PFA !!80 !Triphasic ! !112!Triphasic ! + ++-----+ +----+---+ + !Prox SFA !!116 !Triphasic ! !119!Triphasic ! + ++-----+ +----+---+ + !Mid SFA !!151 !Triphasic ! !172!Triphasic ! + ++-----+ +----+---+ + !Dist SFA !!120 !Triphasic ! !121!Triphasic ! + ++-----+ +----+---+ + !Prox Popliteal !!122 !Triphasic ! !113!Triphasic ! + ++-----+ +----+---+ + !Mid Popliteal !!128 !Triphasic ! !130!Triphasic ! + ++-----+ +----+---+ + !Dist Popliteal !!153 !Triphasic ! !166!Triphasic ! + ++-----+ +----+---+ + !Dist MARKETING PROFESSIONAL !!55 ! ! !72 !Triphasic ! + ++-----+ +----+---+ + !DP !!123 !Triphasic ! !101!Triphasic ! + ++-----+ +----+---+ + Signature dtt: EULALIO MONDRAGON dtd: 02/28/17 1432 Physician Self Edit
--- NOTE | ~2017-02-28 | DS ---
PATIENT'S NAME: VIVIAN THAO [facility] AGE: 31 Y [address] ROOM: [address] [place], [place] [address] LOCATION: GPCU ADMIT DATE: 02/28/2017 Discharge Summary DISCHARGE DATE: 03/11/2017 FAMILY PHYSICIAN: PHYSICIAN, NO ATTENDING PHYSICIAN: Caitlin Stratton PRINCIPAL DISCHARGE DIAGNOSIS: Osteomyelitis of the right third toe. SECONDARY DIAGNOSES: 1. Diabetes mellitus, type 2, insulin-requiring, uncontrolled, hemoglobin A1c of 14.6. 2. Diabetic nephropathy with baseline creatinine of 1.5 in April of 2016. When he was admitted last month, his creatinine was around 1.8. The maximum since then has been 1.9, it is currently 1.7. 3. Diabetic foot ulcer on the plantar surface of the right foot. 4. Essential hypertension. 5. Protein malnutrition, likely secondary to diabetic nephropathy. 6. Periodontal disease. 7. Critical limb ischemia; severe peripheral vascular disease of the right leg. CONSULTATIONS: Dr. Casanova on 02/28/2017. PROCEDURES: Angioplasty to anterior tibial and peroneal arteries by Dr. Casanova on 03/05/2017, and amputation of the right third toe on 03/06/2017. BRIEF SUMMARY: Mr. Thao is a 31-year-old, male, who is uninsured and has not been seeing a primary care physician on a regular basis. He was admitted last month with sepsis related to a diabetic foot ulcer with cellulitis. He underwent debridement. He had been discharged at that time on Augmentin 500 mg twice a day for a total of 6 days. The patient returned on the with hyperglycemia and was found to have critical limb ischemia and underwent revascularization. He was found to have osteomyelitis by cultures of the third right toe during surgery. Culture of the infected bone itself grew Staphylococcus aureus, which is methicillin-susceptible Streptococcus agalactiae which is thought to be universally susceptible to penicillin and a gram-negative anaerobe Prevotella bivia, moderate growth. The patient has been treated with vancomycin since surgery, was changed to cephalosporin 2 days ago. When we got the final identification of this organism, he received 2 g of Mefoxin IV this afternoon. I discussed the culture results with Dr. Coulter of Infectious Diseases. He feels as though the organisms will be covered by Augmentin. The PATIENT'S NAME: VIVIAN THAO [facility] AGE: 31 Y [address] ROOM: [address] [place] [address] LOCATION: GPCU ADMIT DATE: 02/28/2017 Discharge Summary DISCHARGE DATE: 03/11/2017 FAMILY PHYSICIAN: PHYSICIAN, NO ATTENDING PHYSICIAN: Caitlin Stratton Staphylococcus epidermidis which is penicillin resistant, recognizes likely not contributing to the infection at this point. The patient's diabetes is extremely poorly controlled. He has been started on prandial insulin in addition to sliding scale and a basal dose of Lantus which he should continue at home. I have encouraged him to see Dr. Waters, whom he says he has been to at least once. I told him it is essential to have a primary care doctor with his degree of uncontrolled diabetes. In terms of the previously treated ulcer on the right foot, it is healing as assessed by Inna Self of [facility]. We will continue current plan for wet to drys, patient is instructed to do them once or twice a day at least and to follow up with Wound Care next week. Avoid weightbearing if at all possible. I have given him a script for crutches. Hypertension. This has not been well-controlled here. However, I think because of his renal function, I am not going to continue him on the higher dose of lisinopril with hydrochlorothiazide, and he should follow up with the PCP and Nephrology to refine his blood pressure management. The patient also has periodontal disease. I encouraged him to have this addressed since it can affect diabetes in a very detrimental way. He expressed understanding of this. INSTRUCTIONS AT DISCHARGE: 1. Diet: ADA, 2000 kilocalories. 2. Activity: No weightbearing on the right foot. Use the crutches until further notice, at least for 2 weeks. If absolutely necessary, he can use the boots that he has at home to prevent pressure on the forefoot. FOLLOW UP: Followup will be with Dr. Casanova in 1 week, Infectious Diseases in 2 weeks, Dr. Waters within a week, wound care on March 18, 2017, and Dr. Maurer of Nephrology to follow up with his previous renal biopsy results. MEDICATIONS AT THE TIME OF DISCHARGE: 1. Amlodipine 10 mg p.o. daily. 2. Vasotec 10 mg p.o. daily. 3. Humalog KwikPen sliding scale as directed. 4. NovoLog prandial 7 units subcu 3 times a day with meals. 5. Levemir 25 units subcu every morning. 6. Lovastatin 40 mg p.o. at bedtime. 7. I have instructed him to hold the Tradjenta until he sees a PCP. 8. Augmentin 875 mg p.o. 1 b.i.d. for 6 weeks. CONDITION AT DISCHARGE: Fair to good. PATIENT'S NAME: VIVIAN THAO [facility] AGE: 31 Y [address] ROOM: [place] [address] [facility] AD[facility] DATE: 02/28/2017 Discharge Summary DISCHARGE DATE: 03/11/2017 FAMILY PHYSICIAN: PHYSICIAN, NO ATTENDING PHYSICIAN: Caitlin Stratton Time spent in today's visit included me seeing him earlier today, in addition to consultation with ID, and Dr. Casanova by phone, in addition with evaluating the wound this afternoon with Inna Self of the [facility] clinic and discharge planning greater than 60 minutes. VITO VELASCO MD LM/chris /[id number] d: 03/12/17815 t: 03/18/17 1224, DISCHARGE SUMMARY
[~2017-02-28 09:53] MED LIST: AUGMENTIN250 MG PO; CRESTOR10 MG PO; HUMALOG KW200 UNIT/1 SUB-Q; HUMALOG100 UNIT/1 SUB-Q; HYDRODIURIL25 MG PO; LEVEMIR FL100 UNIT/1 SUB-Q; LISINOPRIL-HCT1 EAC1 PO; LOVASTATIN40 MG PO; NORVASC10 MG PO; PROTONIX40 MG PO; TRADJENTA5 MG PO; TYLENOL EXTRA500 MG PO; VASOTEC10 MG PO
[2017-02-28 10:46] LABS: BASOPHIL # 0.1 K/uL (0.0-0.2); BASOPHIL % 0.7 %; BICARBONATE 24.6 mmol/L (18.0-23.0); HEMOGLOBIN 9.5 g/dL (12.0-17.0); IMMATURE GRANULOCYTE % 0.4 %; LYMPHOCYTE # 1.7 K/uL (0.8-4.0); LYMPHOCYTE % 18.4 %; MCHC 33.5 gm/dL (32.0-36.5); MCV 79.6 fl (83.0-98.0); MONOCYTE # 0.4 K/uL (0.0-1.0); MONOCYTE % 3.9 %; MPV 9.6 fl (9.4-12.4); NEUTROPHIL % 65.6 %; NRBC % 0 /100WBC (0-0.00); PCO2 38 mmHg (35-45); PLATELET COUNT 381 K/uL (150-450); PO2 74 mmHg (80-90); RDW-CV 14.3 % (11.9-14.6); WBC 9.2 K/uL (4.0-11.0)
[2017-02-28 10:47] LABS: HEMATOCRIT 28.4 % (37.0-53.0); MCH 26.6 pg (27.0-34.0); RBC 3.57 M/uL (4.00-6.00)
[2017-02-28 10:55] LABS: INR - (THERAPEUTIC) 0.89 (0.92-1.07); PROTIME 9.3 SECONDS (9.8-11.4)
[2017-02-28 10:57] LABS: PTT 31 SECONDS (25-32)
[2017-02-28 11:06] LABS: BILIRUBIN URINE NEGATIVE (NEGATIVE); BLOOD URINE 50 /UL (NEGATIVE); COLOR URINE YELLOW (YELLOW); GLUCOSE URINE 1000 mg/dL (NEGATIVE); KETONE URINE NEGATIVE (NEGATIVE); LEUKOCYTES URINE NEGATIVE /UL (NEGATIVE); NITRITE URINE NEGATIVE (NEGATIVE); PROTEIN URINE 500 mg/dL (NEGATIVE); TURBIDITY URINE CLEAR (CLEAR); UROBILINOGEN URINE NORMAL (NORMAL)
[2017-02-28 11:09] LABS: ALK PHOS 264 IU/L (33-138); ALT 11 IU/L (12-78); AST 15 IU/L (10-40); BLOOD UREA NITROGEN 17 mg/dL (6-24); CALCIUM 7.9 mg/dL (8.5-10.5); CHLORIDE 99 mMol/L (96-110); CO2 23 mMol/L (22-32); CREATININE 1.7 mg/dL (0.6-1.3); ESTIMATED GFR (MDRD EQUATION) 47; SODIUM 132 mMol/L (135-145); TOTAL PROTEIN 6.2 g/dL (6.0-8.4)
[2017-02-28 11:10] LABS: ANION GAP 12.9 (10.0-19.0); POTASSIUM 2.9 mMol/L (3.7-5.1)
[2017-02-28 11:11] LABS: ALBUMIN 1.3 gm/dL (3.5-5.0); TOTAL BILIRUBIN 0.3 mg/dL (0.0-1.5)
[2017-02-28 11:14] LABS: BACTERIA URINE NEGATIVE (NEGATIVE); EPITHELIAL URINE RARE #/HPF (NEGATIVE); WBC URINE NEGATIVE #/HPF (NEGATIVE)
--- NOTE | 2017-02-28 13:53 | NUR ---
Pt is 31 y/o male admit for infection in right foot for hospitalist. Pt alert and oriented x3. No allergies. Pt just here in January and had his 5th toe on R)foot. Now he has infection in it. Hx htn,hypercholest,renal insuff,IDDM, diabetic foot ulcers. Resides at home with his parents. Came through ED.
[2017-02-28] MEDS ORDERED: TRADJENTA5 MG PO (14:18)
[2017-02-28] MEDS ORDERED: LOVASTATIN40 MG PO (14:19)
[2017-02-28] MEDS ORDERED: LISINOPRIL-HCT1 EAC1 PO (14:19)
[2017-02-28 16:00] LABS: ANION GAP 12.2 (10.0-19.0); CALCIUM 7.7 mg/dL (8.5-10.5); CREATININE 1.6 mg/dL (0.6-1.3); POTASSIUM 3.2 mMol/L (3.7-5.1)
--- NOTE | 2017-02-28 17:40 | NUR ---
Significant Event: A/Ox3. Axious. SBP- 160s. P-100-110s. Afebrile. Room air. L) hand running LR at 150ml/hr, insulin gtt at 3units/hr, and KCL 40MEq. Patient had recived 2Grams of mag, 2 40MeQ PO KCL doses, and 1 bag of KCL 40mEq given and a 2nd bag is hanging now. Cultures x2 done in ER. Vasucar consulted. MRI of R) foot done. R) foot is dressed with betadine over open areas and gauze and kurliux. dressings changes daily. WOC and diabetic education to see patient. Patient is up with [facility].
[2017-02-28 18:06] LABS: BILIRUBIN URINE NEGATIVE (NEGATIVE); BLOOD URINE 25 /UL (NEGATIVE); COLOR URINE STRAW (YELLOW); GLUCOSE URINE 1000 mg/dL (NEGATIVE); KETONE URINE NEGATIVE (NEGATIVE); LEUKOCYTES URINE NEGATIVE /UL (NEGATIVE); NITRITE URINE NEGATIVE (NEGATIVE); PROTEIN URINE 500 mg/dL (NEGATIVE); TURBIDITY URINE CLEAR (CLEAR); UROBILINOGEN URINE NORMAL (NORMAL)
[2017-02-28 18:27] LABS: WBC URINE 0-2 #/HPF (NEGATIVE)
[2017-02-28 18:28] LABS: BACTERIA URINE RARE (NEGATIVE); EPITHELIAL URINE 0-2 #/HPF (NEGATIVE)
[2017-02-28 18:29] LABS: MUCUS URINE 3+ (NEGATIVE)
[2017-02-28 18:30] LABS: HYALINE CAST URINE 0-2 #/LPF (NEGATIVE)
[2017-02-28 18:43] LABS: ANION GAP 11.2 (10.0-19.0); CALCIUM 7.9 mg/dL (8.5-10.5); CREATININE 1.6 mg/dL (0.6-1.3); POTASSIUM 3.2 mMol/L (3.7-5.1)
[2017-02-28 22:41] LABS: ANION GAP 9.7 (10.0-19.0); CALCIUM 7.7 mg/dL (8.5-10.5); CREATININE 1.5 mg/dL (0.6-1.3); POTASSIUM 3.7 mMol/L (3.7-5.1)
[2017-03-01 02:29] LABS: ANION GAP 9.7 (10.0-19.0); CALCIUM 7.7 mg/dL (8.5-10.5); CREATININE 1.4 mg/dL (0.6-1.3); POTASSIUM 3.7 mMol/L (3.7-5.1)
--- NOTE | 2017-03-01 03:41 | NUR ---
Significant Event: A/0X3. ANXIOUS AND TEARY EYED AT TIMES THROUGHOUT THE SHIFT. RESTED IN BED ALL OF SHIFT. TURNS SELF. SBA UP TO BR. AFEBRILE. VSS ON RA. DENIES PAIN. IV TO L) HAND WITH D5 1/2 NS AT 150MLS/H AND INSULIN GTT RUNNING AT 2 UNITS/H. BLOOD SUGARS RANGE ANY WHERE FROM 103-391. BEEN NPO SINCE MIDNIGHT FOR POSSIBLE SURGERY TODAY DEPENDING ON THE RESULTS OF THE MRI OF THE R) FOOT. VOIDS FINE. SMALL BM THIS SHIFT. DRESSING TO R) FOOT C/D/I. GAVE 40 MEQ OF KCL IV X1 AND 40 MEQ KCL PO X2 FOR A K LEVEL OF 3.2 THE BEGINNING OF THE SHIFT. K HAS BEEN 3.7 SINCE. Follow up: CONTINUE WITH PLAN OF CARE.
[2017-03-01 05:26] LABS: BASOPHIL # 0.1 K/uL (0.0-0.2); BASOPHIL % 0.5 %; EOSINOPHIL # 1.5 K/uL (0.0-0.5); EOSINOPHIL % 14.9 %; HEMATOCRIT 27.6 % (37.0-53.0); IMMATURE GRANULOCYTE % 0.4 %; LYMPHOCYTE # 2.9 K/uL (0.8-4.0); LYMPHOCYTE % 29.3 %; MCH 26.3 pg (27.0-34.0); MCHC 32.6 gm/dL (32.0-36.5); MCV 80.7 fl (83.0-98.0); MONOCYTE # 0.5 K/uL (0.0-1.0); MONOCYTE % 4.7 %; MPV 9.3 fl (9.4-12.4); NEUTROPHIL % 50.2 %; NRBC % 0 /100WBC (0-0.00); PLATELET COUNT 369 K/uL (150-450); RBC 3.42 M/uL (4.00-6.00); RDW-CV 14.7 % (11.9-14.6); WBC 9.9 K/uL (4.0-11.0)
[2017-03-01 05:37] LABS: ANION GAP 11.8 (10.0-19.0); BLOOD UREA NITROGEN 16 mg/dL (6-24); CALCIUM 7.9 mg/dL (8.5-10.5); CHLORIDE 113 mMol/L (96-110); CO2 23 mMol/L (22-32); CREATININE 1.3 mg/dL (0.6-1.3); ESTIMATED GFR (MDRD EQUATION) > 60; POTASSIUM 3.8 mMol/L (3.7-5.1); SODIUM 144 mMol/L (135-145)
--- NOTE | 2017-03-01 10:15 | NUR ---
Diabetes center note consult received for education. Patient is well known to our Diabetes Center, through past out patient clinic and recent hospitalizations. CDE visits with patient regarding A1C of 14 %. when CDE asks if patient has been doing the insulin to carb ratio that was recommended during last hospitalization, he states..."...I'm so stressed with everything going on, sometimes I just give it up, and don't take my insulin" CDE explains importance of proper control of blood sugars to reduce risks of complications related to heart, eyes, kidneys, nerves, prevention of infection but patient give all kinds of excuses as to why he is not taking insulin on regular bases. Provdied Diabetes Management booklet and Assessment form, he states "...you mean I have to do that again? I've completed that form so many times" Patient also states, "I don't need any education, I know what to do, sometimes I just dont' feel like doing it" Will continue to follow, CDE will attempt to educate more, if patient is willing to listen.
--- NOTE | 2017-03-01 13:00 | NUR ---
1225 Stopped by to review Mellisa' chart and talked with nursing. Per his chart, it appears that he will be having an angiogram with possible toe amputation on Saturday next week with , he will be here until then at least. He is on IV Abxs and also an insulin drip. Will stop and see him at a later time to discuss dismissal plans with him. Made referral to [facility], left them a VM, so they are aware that he is a self pay patient and might be in need of some help with Medicaid/Disability. CM to continue to follow and assist.
--- NOTE | 2017-03-01 16:54 | NUR ---
Significant Event: SBP 130-150'S. SINUS TACH WITH RATES 90-110'S. DRESSING TO RIGHT FOOT ULCER AND 3RD NECROTIC TOE CHANGED BY C HIGHWAY INSPECTOR THIS MORNING. ORDER TO ALLOW PATIENT TO SHOWER AND GET FOOT WET. DRESSING CHANGED AGAIN THIS AFTERNOON WITH BETADINE PAINT THEN GAUZE/WRAP. C/D/I. UP AD MERLINE IN ROOM. VOIDS PER URINAL. NO BM TODAY. VANCO INITIATED TODAY. INSULIN GTT OFF AFTER NPH 10 UNITS GIVEN WITH ACCUCHECKS NOW ACHS WITH SSI. RONIT TONGAYLA. PLAN FOR ANGIOGRAM SATURDAY WITH AMP OF RIGHT 3RD TOE AND I/D OF FOOT ULCER. DIABETIC DIET. NO C/O PAIN. PIV TO L) HAND SL'D. Follow up: RIGHT FOOT ULCER DRESSING CHANGE BID. MONITOR PER PLAN OF CARE.
--- NOTE | 2017-03-02 04:12 | NUR ---
Significant Event: A/O X 3, AFFECT HAS BEEN LABILE. SBP 140'S TO 170'S, HR TACHY IN LOW 100'S, 90'S WHILE SLEEPING. AFEBRILE. DRESSINGS TO BOTH FEET REMAIN C/D/I WITH NO COMPLICATIONS. HAS NOT COMPLAINED OF PAIN, NO PAIN MEDS GIVEN. CONTINOUS IV VANCO. Follow up:
--- NOTE | 2017-03-02 17:28 | NUR ---
Significant Event: VSS ON RA. NO C/O PAIN. INDEPENDENTLY SHOWERED TODAY WITH RIGHT FOOT ULCER PAINTED WITH BETADINE AND WRAPPED WITH GAUZE AFTER SHOWER. DRESSING D/I. TO BE CHANGED BID. AMBULATES IN ROOM UP AD MERLINE AND TO BATHROOM WITH BM X1 NOTED. PIV TO L) HAND SLUGGISH TO FLUSH WITH VANCOMYCIN GIVEN AT 1100 TODAY WITHOUT DIFFICULTY. ACCUCHECKS ACHS WITH MILD SSI. 4 UNITS NOVOLOG TIDCM ADDED TO REGIMEN. Follow up: CONT TO MANAGE PER PLAN OF CARE. SURGERY PLANNED FOR SATURDAY- RIGHT TOE AMPUTATION WITH I/D OF RIGHT FOOT ULCER.
--- NOTE | 2017-03-03 04:07 | NUR ---
Significant Event: Patient is alert and oriented x 3. VSS on room air. HRs in the 90s-100s. SBPs in the 120s-150s. Afebrile. Up ad anita in room. Dressing to right foot is clean, dry, and intact. Denies any pain. Left hand IV, saline locked. Receiving Vanco, 2300 Vanco held due to high trough. Will redraw trough in am. ACHS accuchecks. Patient is cooperative with cares. Follow up: Planned to have surgery on Saturday- right toe amputation and I&D of right foot ulcer
[2017-03-03 11:32] LABS: BASOPHIL # 0.1 K/uL (0.0-0.2); BASOPHIL % 0.8 %; EOSINOPHIL # 1.1 K/uL (0.0-0.5); EOSINOPHIL % 14.7 %; HEMOGLOBIN 9.7 g/dL (12.0-17.0); IMMATURE GRANULOCYTE % 0.3 %; LYMPHOCYTE # 1.6 K/uL (0.8-4.0); LYMPHOCYTE % 21.8 %; MCH 26.6 pg (27.0-34.0); MCHC 32.3 gm/dL (32.0-36.5); MCV 82.2 fl (83.0-98.0); MONOCYTE # 0.3 K/uL (0.0-1.0); MONOCYTE % 3.3 %; MPV 8.7 fl (9.4-12.4); NEUTROPHIL # (ANC) 4.5 K/uL (1.4-9.0); NEUTROPHIL % 59.1 %; NRBC % 0 /100WBC (0-0.00); PLATELET COUNT 399 K/uL (150-450); RBC 3.65 M/uL (4.00-6.00); WBC 7.5 K/uL (4.0-11.0)
[2017-03-03 11:53] LABS: ANION GAP 9.9 (10.0-19.0); CALCIUM 8.2 mg/dL (8.5-10.5); CREATININE 1.6 mg/dL (0.6-1.3); POTASSIUM 3.9 mMol/L (3.7-5.1); TOTAL PROTEIN 6.3 g/dL (6.0-8.4)
[2017-03-03 11:55] LABS: ALBUMIN 1.3 gm/dL (3.5-5.0); TOTAL BILIRUBIN 0.2 mg/dL (0.0-1.5)
--- NOTE | 2017-03-03 17:51 | NUR ---
Significant Event: VSS ON RA. UP IN ROOM INDEPEDENTLY WITH SHOWER TODAY BEFORE DRESSING CHANGE TO RIGHT FOOT. BETADINE SWAB TO ULCER AND TOE WITH GAUZE AND WRAP APPLIED. TO BE CHANGED BID. VANCO CONTINUES ON HOLD PER PHARMACY FOR ELEVATED TROUGH LEVELS. NO C/O PAIN. ACHS ACCUCHECKS WITH SSI, 4 UNITS NOVOLOG TIDCM AND LEVEMIR INCREASED FOR QHS DOSE. Follow up: SURGERY WITH DR MONDRAGON STILL PLANNED FOR SATURDAY.
--- NOTE | 2017-03-04 04:14 | NUR ---
Significant Event: Patient is alert and oriented x 3. VSS on room air. HRs in the 90s-110. SBPs in the 160s. Afebrile. Up ad anita in room. Left hand IV, saline locked. Receiving Vanco. Dressing to right foot is clean, dry, and intact. Denies any pain. ACHS accuchecks. Patient is cooperative with cares. Follow up: To have I&D of right foot ulcer and right 3rd toe amputation on Saturday.
[2017-03-04 09:58] LABS: CREATININE 1.4 mg/dL (0.6-1.3)
--- NOTE | 2017-03-04 13:10 | NUR ---
Diabetes center note: 1300 Spoke with patient briefly and follow up from last week, patient has completed the diabetes Survival Skills checklist and patient denies need for any education at this time. Current A1C 14.6 %. Patient is scheduled for I & D of right foot and apputation of right third toe 03/05/17
--- NOTE | 2017-03-04 13:41 | NUR ---
1226 Reviewed Mellisa' chart and talked with his RN Hazel. Hazel tells me that he has been in a decent mood today, but questions if he might benefit from seeing a counselor about his feelings and what he is going through. Let her know that this would be a good idea so if we could get MD to ok it and order it I think it would be of great benifit for Shelton. Hazel tells me that he is going to have surgery with tomorrow and then after that, he will probably be here for a bit before he is released to home. Let her know that I would plan on seeing Shelton on Saturday after surgery or Saturday to see what his exact dismissal needs would be at that time. CM to continue to follow and assist.
--- NOTE | 2017-03-04 15:29 | NUR ---
Significant Event: A/Ox3. [id number]. P-90-110s. Afebrile. Room air. L) hand IV saline locked. Up SBA. Encouraged to call for help but this irritates patient and he refused alarms. Planned toe amputation tomorrow. R) foot dressing C/d/i. AC/HS accuchecks.
[2017-03-05 04:40] LABS: BASOPHIL % 0.1 %; EOSINOPHIL # 0.8 K/uL (0.0-0.5); EOSINOPHIL % 11.5 %; HEMATOCRIT 26.8 % (37.0-53.0); HEMOGLOBIN 8.8 g/dL (12.0-17.0); IMMATURE GRANULOCYTE % 0.3 %; LYMPHOCYTE # 0.8 K/uL (0.8-4.0); LYMPHOCYTE % 11.1 %; MCH 26.8 pg (27.0-34.0); MCHC 32.8 gm/dL (32.0-36.5); MCV 81.7 fl (83.0-98.0); MONOCYTE # 0.3 K/uL (0.0-1.0); MONOCYTE % 4.1 %; MPV 8.4 fl (9.4-12.4); NEUTROPHIL # (ANC) 4.9 K/uL (1.4-9.0); NEUTROPHIL % 72.9 %; NRBC % 0 /100WBC (0-0.00); RBC 3.28 M/uL (4.00-6.00); RDW-CV 15.3 % (11.9-14.6); WBC 6.8 K/uL (4.0-11.0)
[2017-03-05 04:42] LABS: PLATELET COUNT 311 K/uL (150-450)
--- NOTE | 2017-03-05 04:58 | NUR ---
Significant Event: C/O ABD PAIN AT START OF SHIFT. HE WAS GUARDING ON THE R) SIDE BUT HE SAID HIS WHOLE ABD HURTS. HE SAID HE HAS BEEN VOMITING AND HAVING DIARRHEA. HE BLAMES IT ON UNDERCOOKED FOOD BUT HE SAID THIS HAS BEEN HAPPENING AT HOME WELL. DR. ALBA WAS NOTIFIED AND HE ORDERED AN U/S OF HIS ABD THIS AM. HE ALSO ORDERED SOME LFTS, AMYLASE AND LIPASE. TYLENOL AND ZOFRAN WERE ALSO ORDERED. HE HAD SOME CHILLS AND HIS MAX TEMP WAS 99.6. TYLENOL WAS GIVEN FOR PAIN AND HIS TEMP CAME BACK TO NORMAL AND HE WAS NO LONGER CHILLING. HRs WERE UP IN THE HIGH 120s WITH THE SLIGHT FEVER. THEY CAME BACK TO THE 100s. HAS BEEN NPO SINCE MIDNIGHT FOR U/S AND AMPUTATION OF TOE TODAY. Follow up:
[2017-03-05 05:06] LABS: ALK PHOS 99 IU/L (33-138); ALT 11 IU/L (12-78); AST 18 IU/L (10-40); TOTAL PROTEIN 5.2 g/dL (6.0-8.4)
[2017-03-05 05:11] LABS: ALBUMIN 1.2 gm/dL (3.5-5.0); TOTAL BILIRUBIN 0.3 mg/dL (0.0-1.5)
[2017-03-05 05:17] LABS: ANION GAP 9.7 (10.0-19.0); CREATININE 1.6 mg/dL (0.6-1.3); PHOSPHORUS 3.5 mg/dL (2.5-4.9); POTASSIUM 3.7 mMol/L (3.7-5.1)
[2017-03-05 05:21] LABS: ALBUMIN 1.2 gm/dL (3.5-5.0); CALCIUM 7.4 mg/dL (8.5-10.5)
--- NOTE | 2017-03-05 13:48 | NUR ---
A-SCREENED D/T LOS TO OR TODAY FOR I&D OF R)FOOT AND AMPUTATION OF R)THIRD TOE. C/O VOMITING AND DIARRHEA; US OF ABD TODAY HT: 71 IN. WT: 92.5 KG. BMI: 92.5 KG LABS: NA 141, K+ 3.7, GLU 148, BUN 20, TECHNICAL SPECIALIST CYTOGENETICS 1.6, ALB 1.2, CRP 1.86, HGB A1C 14.6 MEDS: VANCOMYCIN, ZOFRAN, LEVEMIR, NOVOLOG (MILD SS), MEVACOR DIET RX: NPO. PO INTAKE PRIOR TO NPO STATUS WAS 100% FOR THE MOST PART. EST NUTR NEEDS: [id number] KCALS (25-30 KCAL/KG) 92-120 GM PROTEIN (1.0-1.3 GM/KG) 1 ML FLUID/KCAL D-AT NUTRITION RISK W/INCREASED NUTRIENT NEEDS R/T HEALING AEB I&D OF R)FOOT, AMPUTATION OF TOE. I-START THONG BID WHEN DIET RX ADVANCED POST-OP M/E-GOAL: PO INTAKE >/=75% BY NEXT F/U 1)F/U PO INTAKE, SUPPLEMENT ACCEPTANCE, AND POC IN 3-5 DAYS 2)ASSIST NEEDED
--- NOTE | 2017-03-05 16:05 | NUR ---
Significant Event: A/Ox3. [id number]. P-90-110s. Afebrile. Room air. L) hand IV infusing NS at 100ml/hr x 24hr to be stoped tomorrow at 1530. Besrest until 1715 then ad anita. Angiogram through L) groin done for the R)LE, ballooned. Angiosealed. CMS WNL. 1+ pulse. Amputation to the 3rd toe and ID planned for tomorrow. Abdomnial pain/Nausea and loose stools have imrpoved.
--- NOTE | 2017-03-06 04:38 | NUR ---
Significant Event: A/0X3. SBA UP TO BR. TURNS SELF. AFEBRILE. VSS ON RA. IV TO L) HAND WITH NS @ 100 MLS/H. DENIES PAIN. BEEN NPO SINCE MIDNIGHT FOR PROCEDURE THIS AM. PERMITS SIGNED AND ON THE CHART. DRESSING TO R) FOOT C/D/I. L) GROIN SOFT. NO S/S OF BRUISING, OOZING, OR HEMATOMA. DRESSING C/D/I. PULSES THREADY. VOIDS FINE. NO BM THIS SHIFT. Follow up: CONTINUE WITH PLAN OF CARE. PROCEDURE THIS AM.
[2017-03-06 06:15] LABS: BASOPHIL % 0.2 %; EOSINOPHIL % 15.4 %; HEMATOCRIT 25.1 % (37.0-53.0); HEMOGLOBIN 8.1 g/dL (12.0-17.0); IMMATURE GRANULOCYTE % 0.3 %; LYMPHOCYTE # 1.8 K/uL (0.8-4.0); MCH 26.7 pg (27.0-34.0); MCHC 32.3 gm/dL (32.0-36.5); MCV 82.8 fl (83.0-98.0); MONOCYTE # 0.5 K/uL (0.0-1.0); MONOCYTE % 8.1 %; MPV 8.7 fl (9.4-12.4); NEUTROPHIL # (ANC) 3.1 K/uL (1.4-9.0); NRBC % 0 /100WBC (0-0.00); PLATELET COUNT 278 K/uL (150-450); RBC 3.03 M/uL (4.00-6.00); RDW-CV 15.3 % (11.9-14.6); WBC 6.4 K/uL (4.0-11.0)
[2017-03-06 06:29] LABS: ANION GAP 9.7 (10.0-19.0); CALCIUM 7.6 mg/dL (8.5-10.5); CREATININE 1.4 mg/dL (0.6-1.3); PHOSPHORUS 3.3 mg/dL (2.5-4.9); POTASSIUM 3.7 mMol/L (3.7-5.1)
[2017-03-06 06:31] LABS: ALBUMIN 1.1 gm/dL (3.5-5.0)
--- NOTE | 2017-03-06 15:44 | NUR ---
1146 Shelton was out of the room when I went to visit with him. Will try to see tomorrow to talk about eventual dismissal plans/goals. CM to continue to follow and assist.
--- NOTE | 2017-03-07 04:17 | NUR ---
Significant Event: A/0X3. RESTED IN BED ALL OF SHIFT. TURNS SELF. SBA UP TO BR. AFEBILE. VSS ON RA. DENIES PAIN. IV TO L) HAND SL. R) FOOT DRESSING C.D.I. VOIDS FINE. NO BM THIS SHIFT. NO C/O OF NAUSEA. Follow up: CONTINUE WITH PLAN OF CARE.
[2017-03-07 06:10] LABS: BASOPHIL % 0.2 %; EOSINOPHIL # 1.4 K/uL (0.0-0.5); EOSINOPHIL % 16.6 %; HEMATOCRIT 24.9 % (37.0-53.0); IMMATURE GRANULOCYTE % 0.5 %; LYMPHOCYTE # 2.3 K/uL (0.8-4.0); LYMPHOCYTE % 27.7 %; MCH 26.7 pg (27.0-34.0); MCHC 32.1 gm/dL (32.0-36.5); MONOCYTE # 0.5 K/uL (0.0-1.0); MONOCYTE % 5.7 %; MPV 8.9 fl (9.4-12.4); NEUTROPHIL # (ANC) 4.1 K/uL (1.4-9.0); NEUTROPHIL % 49.3 %; NRBC % 0 /100WBC (0-0.00); PLATELET COUNT 312 K/uL (150-450); RDW-CV 15.4 % (11.9-14.6); WBC 8.4 K/uL (4.0-11.0)
[2017-03-07 06:22] LABS: ANION GAP 11.4 (10.0-19.0); CALCIUM 7.5 mg/dL (8.5-10.5); CREATININE 1.6 mg/dL (0.6-1.3); POTASSIUM 3.4 mMol/L (3.7-5.1)
--- NOTE | 2017-03-07 15:09 | NUR ---
1430 Talked with pharmacy about Mellisa' Q18 IV Vanco and if we could get that switched to either something oral or Q24 so I could set him up with outpatient IV Abxs infusions when he went to leave. Pharmacy states that they are waiting for cultures to come back, but that might be something that we can look into. 1435 I later got up to the floor and talked with , let him know that I was wondering if we could have Mellisa' IV Abxs switched to Q24 or what our options might be in order to get Shelton out sooner. tells me that we are waiting on the cultures to come back, but he will probably either have to go with Q24 Daptomycin or Q24 Vanco. For cost purposes, I thought Vanco might be the best way to go. agreed with this. Also mentioned to him that having Shelton see [facility] as an outpatient for his dressing changes either once per day or a few times a week might be of benifit as well. He again thought that this was a good idea. Let him know that I was going to talk with Shelton about this and we would try to make a more concrete and complete plan tomorrow in order to get Shelton back home as soon as we could. Updated RN Fidelina to all of this, she thought it was a good idea too. The only barrier that we might have is getting his IV Vanco switched to a decent time during the day because as of right now, per pharmacy, his dose is at 8pm which really wouldn't be ideal as an outpatient. I also asked her if we had any luck getting doctors to write for a [facility] Counselor to come and see Shelton, she tells me that that is on her list of things to ask doctor for when he rounds next time. 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 MD and RN aware of this. 1445 Stopped by to talk with Shelton but he was on the phone and asked that I come back by later. 1510 Stopped by again to see Shelton before I went down to the office for the day, he was still on the phone so I will stop by and see him tomorrow. CM to continue to follow and assist.
--- NOTE | 2017-03-07 16:11 | NUR ---
A&O. IND. VSS. R FOOT DSG CHANGE DAILY/PRN. IV ATBX HELD TODAY. LS CLEAR. BS ACTIVE. VD PER BR. PLAN IS HOME TOMORROW
[2017-03-08 05:54] LABS: BASOPHIL % 0.4 %; EOSINOPHIL # 1.3 K/uL (0.0-0.5); EOSINOPHIL % 18.4 %; HEMATOCRIT 23.5 % (37.0-53.0); IMMATURE GRANULOCYTE % 0.3 %; LYMPHOCYTE # 2.4 K/uL (0.8-4.0); LYMPHOCYTE % 33.3 %; MCH 26.9 pg (27.0-34.0); MCHC 32.8 gm/dL (32.0-36.5); MCV 82.2 fl (83.0-98.0); MONOCYTE # 0.4 K/uL (0.0-1.0); MONOCYTE % 5.8 %; MPV 8.9 fl (9.4-12.4); NEUTROPHIL % 41.8 %; NRBC % 0 /100WBC (0-0.00); PLATELET COUNT 329 K/uL (150-450); RBC 2.86 M/uL (4.00-6.00); WBC 7.1 K/uL (4.0-11.0)
[2017-03-08 05:55] LABS: HEMOGLOBIN 7.7 g/dL (12.0-17.0)
[2017-03-08 06:02] LABS: ANION GAP 10.4 (10.0-19.0); CALCIUM 7.3 mg/dL (8.5-10.5); CREATININE 1.6 mg/dL (0.6-1.3); POTASSIUM 3.4 mMol/L (3.7-5.1)
--- NOTE | 2017-03-08 06:58 | NUR ---
Significant Event: PT A/O X3. VSS. IV ABX CONTINUED. DRESSING TO RT FOOT C/D/I ACHS. VOIDS FINE, NO BM THIS SHIFT. CONTINUE TO MONITOR. Follow up: FOLLOW CARE PLAN.
--- NOTE | 2017-03-08 11:40 | NUR ---
PT MOVED TO NO RISK W/ 75-100% INTAKE. WILL CONT THONG BID FOR CONTINUED HEALING. WILL ASSIST NEEDED.
--- NOTE | 2017-03-08 13:38 | NUR ---
Call and VM from Inna, WOC RN this morning. I phoned her back and she tells me that was wanting to put a wound vac on [facility]. Inna states she will start the paperwork and then I will need to obtain the paperwork on my end to complete as well. Let her know I wasn't aware of any paperwork, but would check with my coworkers and see what I could come up with. Before I could look for paperwork, Inna phoned me back to say that they weren't going to the do wound vac now, they were just going to do dressing changes. Let her know that this was fine and if anything should change, to let me know.I stopped up to Mellisa' room, he was up walking around when I entered. Introduced myself and CM role to him. He tells me that he lives in [place], he still drives, and is not currently working. 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 We talked about him having to go home on IV Abxs, he wasn't super happy about this, stating that he would rather have oral medications but "it is what it is I guess." Let him know that we were still waiting on to round and for cultures to come back and tell us for sure, but as of right now, it appeared that he would have to have IV Abxs for the time being. We talked about him getting a PICC, he again wasn't really a fan of this, but states he will do it if he has to. Explained to him if he were to go home with IV Abxs, he would have to come in either once a day or two times a day for his medications and not miss a single day of doing so. He states he could handle this. He would drive himself in from [place]. Told him he would probably be here over the weekend and then we would talk on Saturday and try to get him dismissed to go home and come in on Saturday as an outpatient for IV Abxs needs and WOC RN appointments as well. He was fine with this. No other questions, needs or concerns. All of the above was shared with as well. CM to continue to follow and assist.
--- NOTE | 2017-03-08 19:02 | NUR ---
PATIENT IS AAOX3. HE GOT UP TO TAKE A SHOWER TODAY. HE ATE 100% OF MEALS. HE HAD NO INSULIN ISSSUES TODAY. HE EXPRESSED THAT HE WAS READY TO LEAVE. MD WANTS TO POSSIBLY PUT IN A PICC LINE FOR ANTIBIOTICS. PATIENT HAS EXPRESSED THAT IS THE INTENT IS FOR HIM TO STAY MORE THAN A CERTAIN AMOUNT OF DAYS THEN HE WILL JUST LEAVE.
--- NOTE | 2017-03-09 04:55 | NUR ---
Significant Event: PATIENT IS A/O X3. VSS. HR 80-100'S. SBP 130-150'S. AFEBRILE. 02 SATS IN MID 90'S ON RA. NO C/O PAIN. LUNGS CLEAR/DIM. PATIENT UP AD MERLINE IN ROOM BUT IS NON WEIGHT BARING TO THE FRONT OF THE RIGHT FOOT. BOWELS ACTIVE. VOIDS PER RESTROOM. RECENT SURGERY TO RIGHT FOOT WITH RIGHT 3RD TOE AMPUTATION AND BOTTOM OF FOOT DEBRIDEMENT. SITE COVERED WITH GAUZE, KERLEX GAUZE, AND XIMENA WRAP. ALSO HAS SOME REDNESS/RASH-LIKE AREA TO BACK OF NECK/HEAD. PATIENT STATES THIS STARTED YEARS AGO AND THOUGHT IT WAS R/T WEARING HIS "CHAINS". IV TO LEFT HAND SL. ON INTERMITTENT IV ABX. MAY NEED LONGS TERM ABX. ON ACHS ACCUCHECKS AND 4 UNITS INSULIN WITH MEALS. Follow up: CONTINUE TO MONITOR PER PLAN OF CARE.
[2017-03-09 06:27] LABS: BASOPHIL % 0.5 %; EOSINOPHIL # 1.2 K/uL (0.0-0.5); EOSINOPHIL % 16.1 %; HEMATOCRIT 25.6 % (37.0-53.0); HEMOGLOBIN 8.4 g/dL (12.0-17.0); IMMATURE GRANULOCYTE % 0.3 %; LYMPHOCYTE # 2.5 K/uL (0.8-4.0); LYMPHOCYTE % 32.5 %; MCH 26.8 pg (27.0-34.0); MCHC 32.8 gm/dL (32.0-36.5); MCV 81.5 fl (83.0-98.0); MONOCYTE # 0.4 K/uL (0.0-1.0); MONOCYTE % 5.8 %; MPV 8.7 fl (9.4-12.4); NEUTROPHIL # (ANC) 3.4 K/uL (1.4-9.0); NEUTROPHIL % 44.8 %; NRBC % 0 /100WBC (0-0.00); PLATELET COUNT 361 K/uL (150-450); RBC 3.14 M/uL (4.00-6.00); RDW-CV 15.1 % (11.9-14.6); WBC 7.6 K/uL (4.0-11.0)
[2017-03-09 06:40] LABS: ANION GAP 7.7 (10.0-19.0); CALCIUM 7.7 mg/dL (8.5-10.5); CREATININE 1.5 mg/dL (0.6-1.3); PHOSPHORUS 3.6 mg/dL (2.5-4.9); POTASSIUM 3.7 mMol/L (3.7-5.1)
[2017-03-09 06:46] LABS: ALBUMIN 1.3 gm/dL (3.5-5.0)
--- NOTE | 2017-03-09 16:40 | NUR ---
Significant Event:A/O X 3. Ambulates ad anita with no weight bearing to r) ball of foot keeping the weight on his R) heel. Up in chair for meals. Showered self today. Dressing to R) foot changed this AM and then again after the shower. Tolerating ADA diet, No BM today. Voids without problems. Glasses on. 1 [place] this AM prior to first dressing change. Dr Marcelo tells patient he will be starting on PO antibiotics, but not until Dr Casanova orders them. Dr Casanova not here to round this shift. Follow up:Home Saturday on PO antibiotics for 6 weeks.
--- NOTE | 2017-03-10 04:35 | NUR ---
Significant Event:A/Ox3. Afebrile. HR 80-100 NSR. SBP 140-150s. Sats mid to upper 90's on RA. Transfers up ad anita in room on his own. DC'd tele d/t rash and redness from patch adhesive. Benadryl given to help relieve itch and rash. Dressing to R)foot C/D/I. NWB to R)ball of foot, must keep weight on heel. No c/o pain. L)hand IV intermittent ATB. Follow up:Home Saturday on PO ATB.
[2017-03-10 05:42] LABS: BASOPHIL # 0.1 K/uL (0.0-0.2); BASOPHIL % 0.8 %; EOSINOPHIL % 15.5 %; HEMATOCRIT 26.6 % (37.0-53.0); HEMOGLOBIN 8.9 g/dL (12.0-17.0); IMMATURE GRANULOCYTE % 0.3 %; LYMPHOCYTE % 31.5 %; MCH 27.2 pg (27.0-34.0); MCHC 33.5 gm/dL (32.0-36.5); MCV 81.3 fl (83.0-98.0); MONOCYTE # 0.3 K/uL (0.0-1.0); MONOCYTE % 4.6 %; MPV 8.7 fl (9.4-12.4); NEUTROPHIL % 47.3 %; NRBC % 0 /100WBC (0-0.00); PLATELET COUNT 387 K/uL (150-450); RBC 3.27 M/uL (4.00-6.00); RDW-CV 14.9 % (11.9-14.6); WBC 6.3 K/uL (4.0-11.0)
[2017-03-10 05:58] LABS: ANION GAP 10.4 (10.0-19.0); CALCIUM 7.7 mg/dL (8.5-10.5); CREATININE 1.6 mg/dL (0.6-1.3); POTASSIUM 3.4 mMol/L (3.7-5.1)
--- NOTE | 2017-03-10 16:27 | NUR ---
Significant Event: UNEVENTFUL DAY, NO VISITORS. DENIES NEEDS OR C/O, DENIES PAIN. VSS NO ASSESSMENT CHANGES. Follow up: MONITOR
--- NOTE | 2017-03-11 04:27 | NUR ---
Significant Event: Patient alert and oriented. Up ad anita. Dressing to right foot changed. Rested well throughout shift. Pleasant and cooperative with cares. Follow up: continue to monitor
[2017-03-11 06:34] LABS: BASOPHIL % 0.4 %; EOSINOPHIL # 1.3 K/uL (0.0-0.5); EOSINOPHIL % 15.6 %; HEMOGLOBIN 8.4 g/dL (12.0-17.0); IMMATURE GRANULOCYTE % 0.4 %; LYMPHOCYTE # 2.4 K/uL (0.8-4.0); LYMPHOCYTE % 27.5 %; MCH 26.4 pg (27.0-34.0); MCHC 32.3 gm/dL (32.0-36.5); MCV 81.8 fl (83.0-98.0); MONOCYTE # 0.4 K/uL (0.0-1.0); MONOCYTE % 4.4 %; MPV 8.8 fl (9.4-12.4); NEUTROPHIL # (ANC) 4.4 K/uL (1.4-9.0); NEUTROPHIL % 51.7 %; NRBC % 0 /100WBC (0-0.00); PLATELET COUNT 420 K/uL (150-450); RBC 3.18 M/uL (4.00-6.00); RDW-CV 15.1 % (11.9-14.6); WBC 8.6 K/uL (4.0-11.0)
[2017-03-11 06:46] LABS: ANION GAP 10.6 (10.0-19.0); CALCIUM 7.8 mg/dL (8.5-10.5); CREATININE 1.7 mg/dL (0.6-1.3); PHOSPHORUS 3.7 mg/dL (2.5-4.9); POTASSIUM 3.6 mMol/L (3.7-5.1)
[2017-03-11 06:47] LABS: ALBUMIN 1.3 gm/dL (3.5-5.0)
--- NOTE | 2017-03-11 13:16 | NUR ---
1135 Came to review Mellisa' chart but was there writing orders and tells me that she is waiting to consult with ID around 1400 today and then plans on writing dismissal orders for him. She thinks that he will be able to go home on oral abxs upon dismissal and not have to have IV Abxs. She tells me that she will then write for him to come in and see [facility] nurses for outpatient follow up. Jeffrey with [facility] was up by the room when she heard this and was going to notify Inna in [facility] about these plans and have her call for more final plans re:his wound cares. I informed Jeffrey if Inna had any questions to please call and let me know. When I had talked with Shelton last week, he told me that he drive and could come to and from outpatient services here in town if that is what MD said he needed to do. No other questions, needs or concerns. CM to continue to follow and assist.
--- NOTE | 2017-03-11 13:39 | NUR ---
CONSULT NOTED TO START NUTRITION SUPPLEMENT D/T LOW ALB. PT RECENTLY HAD AN I&D OF R)FOOT AND A TOE AMPUTATION. RD HAS BEEN FOLLOWING; THONG BID STARTED POST-OP TO HELP PROMOTE HEALING. PO INTAKE HAS BEEN GOOD. GLUCERNA QD AT LUNCH ADDED.
[2017-03-11] MEDS ORDERED: NOVOLOG100 UNIT/M SUB-Q (18:45)
[2017-03-11] MEDS ORDERED: LOPRESSOR25 MG PO (18:47)
[2017-03-11] MEDS ORDERED: AUGMENTIN250 MG PO (18:50)
--- NOTE | 2017-03-11 19:04 | NUR ---
Left message with CHEMO Laboy, appt. 03/18/17 at 10:30 in outpatient WOC. -SCOUT [place]
--- NOTE | 2017-03-11 19:05 | NUR ---
PT DISMISSED TO HOME WITH BROTHER TO DRIVE, AT TIME OF DC PT IS A/O COLOR IS NORMAL FOR RACE WARM AND DRY, STEADY ON FEET WHEN UP AND AROUND IN ROOM. LUNGS ARE CLEAR ABDOMEN IS SOFT AND NONTENDER WITH PRESNT BOWEL SOUNDS. HE DOES HAVE 1-2+ EDEMA IN BIATERAL LOWER EXTREMITIES. VENOUS STAINING TO BOTH. RT FOOT IS DRESSED WITH GAUZE TO AMPUTATED TOE AREA AND ALSO TO BALL OF FOOT, WRAPPED IN KERLIX AND AN XIMENA WRAP TO COVER, HE DOES GOOD WITH HIS HEEL TOUCH WEIGHT BEARING TO THAT RT FOOT. DISMISSAL INSTRUCTIONS, PRESCRIPTIONS, MEDICATIONS, MEDICATION INSTRUCTIONS, FOLLOW UP CARE AND APPOINTMENTS ALL WENT OVER WITH PT, HE SAYS HE WILL NOT GET THE CRUTCHES THAT WERE ORDERED DUE TO NUMWEROUS STAIRS IN HIS HOUSE. THU ALBRECHT TO HIM VERBALIZES UNDERSTANDING ON ALL INSTRUCTIONS. W/C TO [employer] FOR BROTHER TO DRIVE HIM HOME. DOCTOR DID NOT RELEASE HIM TO DRIVE HIMSELF YET
--- NOTE | 2017-03-12 10:09 | NUR ---
Called Shelton to confirm appt. in outpatient WOC on March 18 at 10:30. Gave him directions to WOC. -Raina, AIR CONDITIONING TECHNICIAN
[2017-05-07] MEDS ORDERED: LISINOPRIL-HCT1 EAC1 PO (15:24)
[2017-05-07] MEDS ORDERED: TYLENOL EXTRA500 MG PO (15:27)
== END 2017-03-11 19:00 | disposition disaster alternative care site (69) | DRG 253 ==
LOC: GMED 09:53 → GPCU 11:36
PROVIDERS: Family Medicine; Internal Medicine; Surgery Vascular Surgery; ADMIT Internal Medicine
PROC: 047P3ZZ Dilation of Right Anterior Tibial Artery, Percutaneous Approach (ICD-10-PCS; principal; 2017-03-05)
PROC: B44FZZ3 Ultrasonography of Right Lower Extremity Arteries, Intravascular (ICD-10-PCS; principal; 2017-03-05)
PROC: B41F1ZZ Fluoroscopy of Right Lower Extremity Arteries using Low Osmolar Contrast (ICD-10-PCS; principal; 2017-03-05)
PROC: 047T3ZZ Dilation of Right Peroneal Artery, Percutaneous Approach (ICD-10-PCS; principal; 2017-03-05)
PROC: 0Y6T0Z0 Detachment at Right 3rd Toe, Complete, Open Approach (ICD-10-PCS; 2017-03-06)
PROC: 0JBQ0ZZ Excision of Right Foot Subcutaneous Tissue and Fascia, Open Approach (ICD-10-PCS; 2017-03-06)
DX: E11.52 Type 2 diabetes mellitus with diabetic peripheral angiopathy with gangrene (principal); E44.0 Moderate protein-calorie malnutrition; E11.21 Type 2 diabetes mellitus with diabetic nephropathy; E11.42 Type 2 diabetes mellitus with diabetic polyneuropathy; N17.9 Acute kidney failure, unspecified; N18.3 Chronic kidney disease, stage 3 (moderate); M86.8X7 Other osteomyelitis, ankle and foot; E88.09 Other disorders of plasma-protein metabolism, not elsewhere classified; E11.621 Type 2 diabetes mellitus with foot ulcer; E11.65 Type 2 diabetes mellitus with hyperglycemia; I12.9 Hypertensive chronic kidney disease with stage 1 through stage 4 chronic kidney disease, or unspecified chronic kidney disease; E11.22 Type 2 diabetes mellitus with diabetic chronic kidney disease; I99.8 Other disorder of circulatory system; E87.6 Hypokalemia; E11.69 Type 2 diabetes mellitus with other specified complication; Z79.4 Long term (current) use of insulin; K05.6 Periodontal disease, unspecified; R00.0 Tachycardia, unspecified; B95.61 Methicillin susceptible Staphylococcus aureus infection as the cause of diseases classified elsewhere; B95.1 Streptococcus, group B, as the cause of diseases classified elsewhere; B96.89 Other specified bacterial agents as the cause of diseases classified elsewhere; Z91.19 Patient's noncompliance with other medical treatment and regimen; Z89.422 Acquired absence of other left toe(s); I87.2 Venous insufficiency (chronic) (peripheral); R80.9 Proteinuria, unspecified; E86.0 Dehydration; D63.1 Anemia in chronic kidney disease; Z68.28 Body mass index [BMI] 28.0-28.9, adult; R21 Rash and other nonspecific skin eruption
CPT/HCPCS: A9577; C1725; C1760; C1769; C1887; J0690; J0694; J1644; J1940; J2250; J2405; J2550; J2720; J3010; J3370; J3475; J3480; J7030; J7040; J7042; J7050; J7120; J7121; P9047